=== PATIENT | female | born 1940 | race Caucasian/White ===

== ENCOUNTER → 2016-08-21 | Outpatient (CLI) | payer BC ==
[~2016-08-21] MED LIST: IBUP-103 PO; MULT-506 PO; RXC5 PO
--- NOTE | 2016-08-22 12:45 | MAMMOGRAPHY REPORT ---
BILATERAL DIGITAL SCREENING MAMMOGRAM WITH CAD: 08/21/2016 CLINICAL HISTORY: Routine screening. Patient has no complaints. TECHNIQUE: Current study was also evaluated with a Computer Aided Detection (CAD) system. Bilateral CC and MLO views were obtained. COMPARISON: Comparison is made to exams dated: 09/24/2012 mammogram, 09/22/2012 mammogram, 09/22/2011 m ammogram, 07/15/2004 mammogram, and 07/13/2003 mammogram - [facility]. BREAST COMPOSITION: There are scattered areas of fibroglandular density in both breasts. FINDINGS: There is a possible small cluster of calcifications in the left superior breast at approxi mately 12:00, for which spot magnification views are recommended for further evaluation. Additionally, there are mildly prominent axillary lymph nodes bilaterally, which were not clearly see n on the 2012 and 2011 exams. Recommend bilateral axillary ultrasound for further evaluation. The remainder of both breasts are stable compared to prior exams, without suspicious masses, calcific ations, or areas of architectural distortion noted. IMPRESSION: ACR BI-RADS CATEGORY 0: INCOMPLETE EVALUATION: NEED ADDITIONAL IMAGING EVALUATION Left breast calcifications and bilateral axillary lymph nodes, for which additional imaging evaluatio n is recommended. The patient will be called to schedule an appointment. Approximately 10% of breast cancers are not detected with mammography. A negative mammographic report should not delay biopsy if a clinically suggestive mass is present. Karina Oscar M.D. /:08/21/2016 16:55:30 Chronometer Tester: Danya TOBAR(Fernando)(Marcelino)(ANALILIA), [facility] letter sent: Addl Imaging 0 BI-RADS Code: ACR BI-RADS Category 0: Incomplete Evaluation: Need Additional Imaging Evaluation
== END | disposition home or self-care (01) ==
LOC: C.MAMM 11:07
PROVIDERS: ATTEND Family Medicine
DX: Z12.31 Encounter for screening mammogram for malignant neoplasm of breast (principal)

== ENCOUNTER → 2016-09-04 | Outpatient (CLI) | payer BC ==
--- NOTE | 2016-09-04 16:01 | MAMMOGRAPHY REPORT ---
UNILATERAL LEFT DIGITAL DIAGNOSTIC MAMMOGRAM AND TARGETED BILATERAL ULTRASOUND: 09/04/2016 CLINICAL HISTORY: Callback from screening mammogram for left breast calcifications and prominent bila teral axillary lymph nodes. TECHNIQUE: Spot magnification left CC and ML views were obtained. COMPARISON: Comparison is made to exams dated: 08/21/2016 mammogram, 09/22/2012 mammogram, 09/22/2011 m ammogram, 07/15/2004 mammogram, 07/13/2003 mammogram, and 09/24/2012 mammogram - [facility] ter. BREAST COMPOSITION: There are scattered areas of fibroglandular density in the left breast. FINDINGS: Spot magnification views of the left breast demonstrate a small 1 mm cluster of 2-3 punctat e benign-appearing calcifications in the left 12:00 breast anteriorly. The calcifications were not c learly evident on prior exams. The calcifications are probably benign and short interval follow-up i s recommended. Targeted ultrasound was performed of bilateral axillary regions to evaluate the axillary lymph nodes seen mammographically. There are multiple morphologically normal lymph nodes in bilateral axillary r egions, which are normal oval in shape and demonstrate normal fatty rickey and thin peripheral cortices . No morphologically abnormal lymph nodes are evident. IMPRESSION: ACR-BI-RADS CATEGORY 3: PROBABLY BENIGN, TARGETED ULTRASOUND ACR-BI-RADS CATEGORY 3: PRO BABLY BENIGN 1. Small cluster of 2-3 punctate benign-appearing calcifications in the left 12:00 breast is probabl y benign. Recommend follow-up diagnostic mammograms of the left breast in 6 months to confirm stabil ity. 2. Morphologically normal bilateral axillary lymph nodes, without evidence of adenopathy. The patient has been verbally notified of the results. Approximately 10% of breast cancers are not detected with mammography. A negative mammographic report should not delay biopsy if a clinically suggestive mass is present. Karina Oscar M.D. /:09/04/2016 14:50:03 Innovation Manager: Michael TOBAR(R)(M), [facility] letter sent: Follow Up Recommended 3 BI-RADS Code: ACR-BI-RADS Category 3: Probably Benign Ultrasound BI-RADS: ACR-BI-RADS Category 3: Pr obably Benign
== END | disposition home or self-care (01) ==
LOC: C.MAMM 12:38
PROVIDERS: ATTEND Family Medicine
DX: R92.1 Mammographic calcification found on diagnostic imaging of breast (principal); R92.2 Inconclusive mammogram

== ENCOUNTER → 2016-10-27 | Day surgery (SDC) | payer BC ==
[2016-09-18 08:28] VITALS: Ht 170.2 cm; Wt 67.3 kg
[~2016-10-27] VITALS: Ht 170.2 cm; Wt 67.3 kg
[~2016-10-27] MED LIST changes: +ACETAMINOPHEN 325 MG TAB PO PRN; +ATROPINE SULFATE 0.1 MG/ML 5ML SYR IV PRN; +BRIMONIDINE TART 0.2% OP SOLN PER DROP CHARGE ONE; +EpHEDrine SULFATE INJ 50 MG/ML AMP IV PRN; +EpINEphrine INJ 1MG/ML AMP 1 MG/ML AMP ONE; +LACTATED RINGER'S 1000ML 500 ML IV SCH; +LIDOCAINE 4% OP SOLN DROP CHARGE ONE; +LIDOCAINE 4% OP SOLN DROP CHARGE OPL SCH; +LIDOCAINE HCL 1% MPF 2 ML VIAL ONE; +MIDAZOLAM HCL 1 MG/ML 2ML VIAL ONE; +MOXIFLOXACIN OPH SOLN PER DROP CHARGE ONE; +POVIDONE-IODINE OP SOLN 30 ML BTL ONE; +PROPARACAINE 0.5% OP SOLN PER DROP CHARGE OPL SCH; +PROPARACAINE HCL 0.5% OP SOLN 15 ML BTL OPL ONE; -RXC5 PO; +TOBRAMYCIN/DEXAMETHASONE OPH OINT PER APPLN CHARGE ONE
[2016-10-27] MEDS: PHENYLEPHRINE HCL 2.5% OP SOLN PER DROP CHARGE OPL SCH ×2 (09:21→09:27)
[2016-10-27] MEDS: TROPICAMIDE 1% OP SOLN PER DROP CHARGE OPL SCH ×2 (09:22→09:28)
[2016-10-27] MEDS: CYCLOPENTOLATE HCL 1% OP SOLN PER DROP CHARGE OPL SCH ×2 (09:23→09:29)
[2016-10-27] MEDS: KETOROLAC 0.5% OP SOLN PER DROP CHARGE OPL SCH ×2 (09:24→09:30)
[2016-10-27] MEDS: MOXIFLOXACIN OPH SOLN PER DROP CHARGE OPL SCH ×2 (09:25→09:31)
--- NOTE | 2016-10-27 09:48 | History & Physical Bridge - SC ---
H&P Re-Evaluation Bridge Note: I have examined the patient, reviewed the History & Physical and in the interval since the performance of the History & Physical I have noted the following changes of clinical significance: No changes noted
--- NOTE | 2016-10-27 11:10 | Discharge Instructions-SurgCtr ---
Discharge Instructions Date of Service Oct 27, 2016. Visit Reason for Visit: Cataract Left Eye Discharge Discharge Diagnosis / Problem: cataract left eye Discharge Goals Goal(s): Improve function Activity Recommendations Activity Limitations: per Instructions/Follow-up section Lifting Limitations: no more than 5 pounds Anesthesia . Post Anesthesia Instructions: If you have had General Anesthesia or IV Sedation: * Do not drive today. * Resume driving when surgeon permits. * Do not make important decisions or sign legal documents today. * Call surgeon for: 1. Temperature elevations greater than 101 degrees F. 2. Uncontrollable pain. 3. Excessive bleeding. 4. Persistent nausea and vomiting. 5. Medication intolerance (nausea, vomiting or rash). * For nausea and vomiting use only clear liquids such as: tea, soda, bouillon until nausea subsides, then gradually increase diet as tolerated. * If you have any concerns or questions, call your surgeon's office. If physician is unavailable and it is an emergency, call 911 or go to the nearest emergency room. . Instructions / Follow-Up Instructions / Follow-Up ACTIVITY RECOMMENDATIONS: * Light activities * You may walk outside, read, watch television. * Mild irritation and blurred vision are common for the first few days, redness around the white part of the eye is common. MEDICATIONS: Resume previous medications unless instructed otherwise by your surgeon. Eye drops (today and tomorrow): Cipro - one drop in operative eye every 2 hours while awake Prednisolone 1% - one drop in operative eye every 2 hours while awake Ilevro - one drop operative eye 1 times daily SPECIAL CARE INSTRUCTIONS: * If any problems or concerns, please call Dr. Boston's office at . * Keep plastic shield taped over eye to sleep at night. * Keep plastic shield taped over eye except to administer eye drops. * Keep plastic shield on until office visit the following day. FOLLOW UP VISIT: Follow-up with Dr. Boston in the [place] office as scheduled. If not already scheduled, please call the office at . Diet Recommendations Home Diet: resume previous diet Procedures Procedures Performed: Left Cataract Phacoemulsification With Intraocular Lens Implant; Symfony Lens Pending Studies Studies pending at discharge: no Medical Emergencies . Who to Call and When: Medical Emergencies: If at any time you feel your situation is an emergency, please call 911 immediately. . Non-Emergent Contact Non-Emergency issues call your: Malariologist . . "Provider Documentation" section prepared by Lexx Boston. .
[2016-10-27 11:12] VITALS: TEMP 36.6
--- NOTE | 2016-10-27 11:14 | [facility] Operative Report ---
Operative Report Operative Date Oct 27, 2016. Pre-Operative Diagnosis Left Eye Cataract and astigmatism Post-Operative Diagnosis Same Procedure(s) Performed Left Cataract Phacoemulsification With Intraocular Lens Implant; Toric Symfony Lens Surgeon Dr Boston Benzol Operator Surgeon(s) None Estimated Blood Loss 0ml Findings cataract left eye Fluids (cc crystalloids) see anesthesia record Specimens None Drains none Anesthesia local with sedation Complication(s) None Disposition Recovery Room / PACU Implants HUNTER [id number] 17.0 Indications decreased vision left eye Description of Procedure After informed consent was obtained in the holding area the patient was wheeled back to the Femtosecond laser room. The left eye was docked with the laser and the capsulorrhexis, prechop of the lens, and primary incision were made. The patient was then taken to the operating room where cardiac monitoring leads and oxygen by nasal cannula was administered by Anesthesia. Gentle IV sedation was given, and the patient's left eye was prepped and draped in usual sterile fashion. A wire lid speculum was placed into the left eye and the operating microscope was swung into position. Using 0.12 forceps and a Supersharp blade a paracentesis port was made 2 o'clock hours away from the 3 o'clock position of the patient's left eye. 1% non-preserved Lidocaine was then injected into the anterior chamber for anesthesia. Endocoat was injected into the anterior chamber. A Jose Francisco spatula was then used to enter the corneal incision at the 3 o'clock position of the left eye. Amvisc was injected into the anterior chamber and a cystotome and Utrata forceps were used to remove the curvilinear capsulorrhexis. BSS on a hydrodissection cannula was used to hydrodissect the lens nucleus away from the capsular bag. The phacoemulsification handpiece was then used in a stop and chop fashion to remove the lens nucleus. The irrigation and aspiration handpiece was then used to remove the residual cortical material. Amvisc was injected into the capsular bag and anterior chamber and a HUNTER [id number] 17.0 Diopter intraocular lens was injected into the capsular bag. Irrigation and aspiration handpiece was used to remove the residual viscoelastic material. The wounds were hydrated and noted to be watertight. The wire lid speculum was removed from the eye. Vigamox, Brimonidine, and TobraDex ointment were placed on the eye and it was shielded. It should be noted that EndoCoat was used extensively during the case to protect the cornea endothelium. DISPOSITION: The patient tolerated the procedure well and was wheeled to the post anesthesia care unit in stable condition. I attest to the content of the Intraoperative Record and any orders documented therein. Any exceptions are noted below. I attest to the content of the Intraoperative Record and any orders documented therein. Any exceptions are noted below.
--- NOTE | 2016-10-27 11:20 | Anesthesiology Progress Note ---
Anesthesia Post Op Note Date & Time Oct 27, 2016 at 11:19 Vital Signs Pain Intensity: 0 Vital Signs Past 12 Hours Date Time Temp Pulse Resp B/P (MAP) Pulse Ox O2 Delivery O2 Flow Rate FiO2 10/27/16 11:12 36.6 73 16 142/86 (104) 73 Room Air 10/27/16 10:46 85 16 156/88 100 Room Air 10/27/16 10:40 74 16 144/89 98 Room Air 10/27/16 09:14 36.5 88 18 179/105 (129) 97 Room Air Notes Mental Status: alert / awake / arousable, participated in evaluation Pt Amnestic to Procedure: No Nausea / Vomiting: adequately controlled Pain: adequately controlled Airway Patency, RR, SpO2: stable & adequate BP & HR: stable & adequate Hydration State: stable & adequate Anesthetic Complications: no major complications apparent Anesthetic Complications: level of amnesia appropriate for MAC
[2016-10-27 11:26] VITALS: BP 127/81; PULSE 73; O2SAT 97
== END | disposition home or self-care (01) ==
LOC: X.SURG 09:01
PROVIDERS: ATTEND Ophthalmology
DX: H25.12 Age-related nuclear cataract, left eye (principal); H52.202 Unspecified astigmatism, left eye; Z96.652 Presence of left artificial knee joint; M19.90 Unspecified osteoarthritis, unspecified site; F41.9 Anxiety disorder, unspecified

== ENCOUNTER → 2016-11-10 | Day surgery (SDC) | payer BC ==
[2016-11-06 13:32] VITALS: Ht 170.2 cm; Wt 67.3 kg
[~2016-11-10] VITALS: Ht 170.2 cm; Wt 67.3 kg
[~2016-11-10] MED LIST changes: +500ML BSS 0.3ML EPI 1:1000PF IRRIG ONE; +AMVISC PLUS 0.8ML SYRINGE INT OCU ONE; +BSS FLUSH ONE; +ENDOCOAT 0.85ML SYRINGE INT OCU ONE; -LIDOCAINE 4% OP SOLN DROP CHARGE OPL SCH; +LIDOCAINE 4% OP SOLN DROP CHARGE OPR SCH; -PROPARACAINE 0.5% OP SOLN PER DROP CHARGE OPL SCH; +PROPARACAINE 0.5% OP SOLN PER DROP CHARGE OPR SCH; -PROPARACAINE HCL 0.5% OP SOLN 15 ML BTL OPL ONE; +PROPARACAINE HCL 0.5% OP SOLN 15 ML BTL OPR ONE
[2016-11-10] MEDS: PHENYLEPHRINE HCL 2.5% OP SOLN PER DROP CHARGE OPR SCH ×2 (08:04→08:13)
[2016-11-10] MEDS: TROPICAMIDE 1% OP SOLN PER DROP CHARGE OPR SCH ×2 (08:05→08:15)
[2016-11-10] MEDS: CYCLOPENTOLATE HCL 1% OP SOLN PER DROP CHARGE OPR SCH ×2 (08:06→08:16)
[2016-11-10] MEDS: KETOROLAC 0.5% OP SOLN PER DROP CHARGE OPR SCH ×2 (08:07→08:17)
[2016-11-10] MEDS: MOXIFLOXACIN OPH SOLN PER DROP CHARGE OPR SCH ×2 (08:09→08:18)
--- NOTE | 2016-11-10 09:25 | Discharge Instructions-SurgCtr ---
Discharge Instructions Date of Service Nov 10, 2016. Visit Reason for Visit: Right Cataract Discharge Discharge Diagnosis / Problem: cataract right eye Discharge Goals Goal(s): Improve function Activity Recommendations Activity Limitations: per Instructions/Follow-up section Lifting Limitations: no more than 5 pounds Anesthesia . Post Anesthesia Instructions: If you have had General Anesthesia or IV Sedation: * Do not drive today. * Resume driving when surgeon permits. * Do not make important decisions or sign legal documents today. * Call surgeon for: 1. Temperature elevations greater than 101 degrees F. 2. Uncontrollable pain. 3. Excessive bleeding. 4. Persistent nausea and vomiting. 5. Medication intolerance (nausea, vomiting or rash). * For nausea and vomiting use only clear liquids such as: tea, soda, bouillon until nausea subsides, then gradually increase diet as tolerated. * If you have any concerns or questions, call your surgeon's office. If physician is unavailable and it is an emergency, call 911 or go to the nearest emergency room. . Instructions / Follow-Up Instructions / Follow-Up ACTIVITY RECOMMENDATIONS: * Light activities * You may walk outside, read, watch television. * Mild irritation and blurred vision are common for the first few days, redness around the white part of the eye is common. MEDICATIONS: Resume previous medications unless instructed otherwise by your surgeon. Eye drops (today and tomorrow): Cipro - one drop in operative eye every 2 hours while awake Prednisolone 1% - one drop in operative eye every 2 hours while awake Ilevro - one drop operative eye 1 times daily SPECIAL CARE INSTRUCTIONS: * If any problems or concerns, please call Dr. Boston's office at . * Keep plastic shield taped over eye to sleep at night. * Keep plastic shield taped over eye except to administer eye drops. * Keep plastic shield on until office visit the following day. FOLLOW UP VISIT: Follow-up with Dr. Boston in the [place] office as scheduled. If not already scheduled, please call the office at . Diet Recommendations Home Diet: resume previous diet Procedures Procedures Performed: Right Cataract Phacoemulsification With Intraocular Lens Implant, Symfony Lens, Femto Pending Studies Studies pending at discharge: no Medical Emergencies . Who to Call and When: Medical Emergencies: If at any time you feel your situation is an emergency, please call 911 immediately. . Non-Emergent Contact Non-Emergency issues call your: Sprinkler Installer . . "Provider Documentation" section prepared by Lexx Boston. .
[2016-11-10 09:26] VITALS: TEMP 36.6
--- NOTE | 2016-11-10 09:29 | [facility] Operative Report ---
Operative Report Operative Date Nov 10, 2016. Pre-Operative Diagnosis Right Eye Cataract Post-Operative Diagnosis Same Procedure(s) Performed Right Cataract Phacoemulsification With Intraocular Lens Implant, Symfony Lens, Femto Surgeon Dr Boston Special Education Administrator Surgeon(s) None Estimated Blood Loss 0ml Findings cataract right eye Fluids (cc crystalloids) see anesthesia record Specimens None Drains none Anesthesia local with sedation Complication(s) None Disposition Recovery Room / PACU Implants hunter [id number] 15.0 Indications decreased vision right eye Description of Procedure After informed consent was obtained in the holding area the patient was wheeled back to the femtosecond laser room. The right eye was docked with the laser and the laser was used to make the capsulorrhexis, prechop of the lens, and primary incision. The patient was then taken to the operating room where cardiac monitoring leads and oxygen by nasal cannula was administered by Anesthesia. Gentle IV sedation was given, and the patient's right eye was prepped and draped in usual sterile fashion. A wire lid speculum was placed into the right eye and the operating microscope was swung into position. Using 0.12 forceps and a Supersharp blade a paracentesis port was made 2 o'clock hours away from the 9 o'clock position of the patient's right eye. 1% non-preserved Lidocaine was then injected into the anterior chamber for anesthesia. Endocoat was then injected into the anterior chamber. A Jose Francisco spatula was then used to enter the shelved clear corneal incision at the 9 o'clock position of the right eye. Amvisc was injected into the anterior chamber and a cystotome and Utrata forceps were used to perform a curvilinear capsulorrhexis. BSS on a hydrodissection cannula was used to hydrodissect the lens nucleus away from the capsular bag. The phacoemulsification handpiece was then used in a stop and chop fashion to remove the lens nucleus. The irrigation and aspiration handpiece was then used to remove the residual cortical material. Amvisc was injected into the capsular bag and anterior chamber and a HUNTER [id number] 15.0 Diopter intraocular lens was injected into the capsular bag. Irrigation and aspiration handpiece was used to remove the residual viscoelastic material. The wounds were hydrated and noted to be watertight. The wire lid speculum was removed from the eye. Vigamox, Brimonidine, and TobraDex ointment were placed on the eye and it was shielded. It should be noted that EndoCoat was used extensively during the case to protect the cornea endothelium. DISPOSITION: The patient tolerated the procedure well and was wheeled to the post anesthesia care unit in stable condition. I attest to the content of the Intraoperative Record and any orders documented therein. Any exceptions are noted below. I attest to the content of the Intraoperative Record and any orders documented therein. Any exceptions are noted below.
--- NOTE | 2016-11-10 09:31 | Anesthesia Progress Nt - [facility] ---
Anesthesia Post Op Note Date & Time Nov 10, 2016 at 09:31 Vital Signs Pain Intensity: 0 Vital Signs Past 12 Hours Date Time Temp Pulse Resp B/P (MAP) Pulse Ox O2 Delivery O2 Flow Rate FiO2 11/10/16 09:26 36.6 76 16 147/84 (105) 95 Room Air 11/10/16 08:57 80 16 152/90 98 Room Air 11/10/16 08:52 77 16 134/85 98 Room Air 11/10/16 07:43 36.6 81 144/95 (111) 99 Room Air Notes Mental Status: alert / awake / arousable, participated in evaluation Pt Amnestic to Procedure: Yes Nausea / Vomiting: adequately controlled Pain: adequately controlled Airway Patency, RR, SpO2: stable & adequate BP & HR: stable & adequate Hydration State: stable & adequate Anesthetic Complications: no major complications apparent
[2016-11-10 09:49] VITALS: BP 126/80; PULSE 70; O2SAT 98
== END | disposition home or self-care (01) ==
LOC: X.SURG 07:30
PROVIDERS: ATTEND Ophthalmology
DX: H25.11 Age-related nuclear cataract, right eye (principal)

== ENCOUNTER → 2017-02-24 | Outpatient (CLI) | payer BC ==
[~2017-02-24] MED LIST changes: -500ML BSS 0.3ML EPI 1:1000PF IRRIG ONE; -ACETAMINOPHEN 325 MG TAB PO PRN; -AMVISC PLUS 0.8ML SYRINGE INT OCU ONE; -ATROPINE SULFATE 0.1 MG/ML 5ML SYR IV PRN; -BRIMONIDINE TART 0.2% OP SOLN PER DROP CHARGE ONE; -BSS FLUSH ONE; -ENDOCOAT 0.85ML SYRINGE INT OCU ONE; -EpHEDrine SULFATE INJ 50 MG/ML AMP IV PRN; -EpINEphrine INJ 1MG/ML AMP 1 MG/ML AMP ONE; -LACTATED RINGER'S 1000ML 500 ML IV SCH; -LIDOCAINE 4% OP SOLN DROP CHARGE ONE; -LIDOCAINE 4% OP SOLN DROP CHARGE OPR SCH; -LIDOCAINE HCL 1% MPF 2 ML VIAL ONE; -MIDAZOLAM HCL 1 MG/ML 2ML VIAL ONE; -MOXIFLOXACIN OPH SOLN PER DROP CHARGE ONE; -POVIDONE-IODINE OP SOLN 30 ML BTL ONE; -PROPARACAINE 0.5% OP SOLN PER DROP CHARGE OPR SCH; -PROPARACAINE HCL 0.5% OP SOLN 15 ML BTL OPR ONE; -TOBRAMYCIN/DEXAMETHASONE OPH OINT PER APPLN CHARGE ONE
== END | disposition home or self-care (01) ==
LOC: C.MAMM 14:54
PROVIDERS: ATTEND Family Medicine
DX: Z78.0 Asymptomatic menopausal state (principal); M85.89 Other specified disorders of bone density and structure, multiple sites

== ENCOUNTER → 2017-04-09 | Outpatient (CLI) | payer BC ==
--- NOTE | 2017-04-09 15:19 | MAMMOGRAPHY REPORT ---
UNILATERAL LEFT DIGITAL DIAGNOSTIC MAMMOGRAM TOMOSYNTHESIS WITH CAD: 04/09/2017 CLINICAL HISTORY: Short interval follow-up of left breast calcifications. The patient reports no cur rent complaints. TECHNIQUE: Breast tomosynthesis in addition to standard 2D mammography was performed. Current study was also evaluated with a Computer Aided Detection (CAD) system. Left CC and MLO 2-D and tomosynthes is images and spot magnification left CC and ML views were obtained. COMPARISON: Comparison is made to exams dated: 09/04/2016 ultrasound, 09/04/2016 mammogram, 08/21/2016 mammogram, 09/24/2012 mammogram, 09/22/2012 mammogram, and 09/22/2011 mammogram - [facility]. BREAST COMPOSITION: There are scattered areas of fibroglandular density in the left breast. FINDINGS: The small 1 mm cluster of 3 punctate benign-appearing calcifications in the left 12:[address] is stable compared to the August 2016 exam and is probably benign. The remainder of the left breast is stable compared to prior exams, without suspicious masses, calcifications, or areas of architectu ral distortion noted. IMPRESSION: ACR-BI-RADS CATEGORY 3: PROBABLY BENIGN Small cluster of punctate benign-appearing calcifications in the left 12:00 breast is stable compared to the August 2016 exam and is probably benign. Recommend follow-up bilateral diagnostic mammograms i n 6 months to confirm longer stability of the left breast calcifications and for routine mammography of the right breast. The patient has been verbally notified of the results. Approximately 10% of breast cancers are not detected with mammography. A negative mammographic report should not delay biopsy if a clinically suggestive mass is present. Karina Oscar M.D. ah/:04/09/2017 09:56:45 Records Technician: Evelyn SEGURA)(Marcelino), [facility] letter sent: Follow Up Recommended 3 BI-RADS Code: ACR-BI-RADS Category 3: Probably Benign
== END | disposition home or self-care (01) ==
LOC: C.MAMM 09:28
PROVIDERS: ATTEND Family Medicine
DX: R92.0 Mammographic microcalcification found on diagnostic imaging of breast (principal)

== ENCOUNTER 2021-06-06 18:56 | Inpatient (IN) ==
--- NOTE | 2021-06-06 20:16 | XRay Report ---
XR chest 1V portable CLINICAL HISTORY: weakness. Evaluate cardiopulmonary status COMPARISON STUDY: 07/06/2018 TECHNIQUE: 1 view of the chest FINDINGS: Single frontal view of the chest demonstrates the cardiomediastinal silhouette to be within normal li mits. There is a decreased inspiratory effort with elevation of the hemidiaphragms and crowding of th e bronchovascular markings at the lung bases and centrally. The lungs are clear of alveolar opacities . There is no evidence for pleural effusion. There is no evidence for vascular congestion. There is n o acute osseous pathology. IMPRESSION: 1. There is a decreased inspiratory effort with otherwise no acute chest disease. ACT 112: Negative or not required by law. Electronically signed by: Alex Kumar M.D. 06/06/2021 8:14 PM
[2021-06-06] MEDS ORDERED: SODIUM CHLORIDE 0.9% 1000ML 1,000 ML IV ONE (20:19)
[2021-06-06 20:21] LABS: Basophils # (auto) 0.04 K/uL (0-0.2); Basophils % (auto) 0.2 %; Eosinophils # (auto) 0.11 K/uL (0-0.5); Eosinophils % (auto) 0.7 %; Hematocrit (blood only) 50.1 % (37-47); Hemoglobin 16.4 g/dL (12.0-16.0); Immature Granulocytes # (auto) 0.05 K/uL (0.00-0.02); Immature Granulocytes % (auto) 0.3 %; Lymphocytes # (auto) 1.23 K/uL (1.2-3.4); Lymphocytes % (auto) 7.6 %; Mean Corpuscular Hemoglobin 30.8 pg (25-34); Mean Corpuscular Hgb Conc 32.7 g/dL (32-36); Mean Platelet Volume 10.8 fL (7.4-10.4); Monocytes # (auto) 0.78 K/uL (0.11-0.59); Monocytes % (auto) 4.8 %; Neutrophils # (auto) 13.94 K/uL (1.4-6.5); Neutrophils % (auto) 86.4 %; Platelet Count 514 K/uL (130-400); RDW Coefficient of Variation 14.8 % (11.5-14.5); RDW Standard Deviation 50.9 fL (36.4-46.3); Red Blood Count 5.33 M/uL (4.2-5.4); White Blood Count 16.15 K/uL (4.8-10.8)
[2021-06-06] MEDS ORDERED: OPTIRAY 320 125ml IV ONE (20:23)
[2021-06-06] MEDS ORDERED: STAT IV STA (20:26)
[2021-06-06] MEDS ORDERED: SODIUM CHLORIDE 0.9% 10ML FLUSH IV STA (20:26)
[2021-06-06] MEDS ORDERED: No Aspirin within 24hrs of THROMBOLYTIC-Stroke PO SCH (20:30)
--- NOTE | 2021-06-06 20:38 | CT Scan Report ---
CT head/brain wo con CLINICAL HISTORY: Stroke Like Symptoms . Right-sided weakness COMPARISON STUDY: No previous studies for comparison. CT DOSE: TECHNIQUE: Standard CT of the Brain was performed without IV contrast. A dose lowering technique was utilized adhering to the principles of ALARA. FINDINGS: Extraaxial space: There is no evidence for subdural hematoma. There are no extra-axial fluid collecti ons. Ventricles and cisterns: The ventricles are moderately dilated bilaterally. There is no evidence for midline shift or mass effect. Parenchyma: There is no subarachnoid or intraparenchymal hemorrhage. There is no evidence for an acut e infarct or cerebral edema. There is mild cerebral cortical atrophy and decreased attenuation in the periventricular white matter representing remote small vessel disease. There are no gross mass lesio ns. Osseous structures: There is no evidence for an acute fracture. The visualized paranasal sinuses are clear. The mastoid air cells are clear bilaterally. Soft tissues: There is no evidence for focal soft tissue swelling. IMPRESSION: 1. No acute intracerebral pathology. 2. Atrophy and remote small vessel disease. ACT 112: Negative or not required by law. Electronically signed by: Alex Kumar M.D. 06/06/2021 8:36 PM
[2021-06-06] MEDS ORDERED: TENECTEPLASE 16 MG in SYRINGE 0 ML IV ONE (20:39)
[2021-06-06 20:43] LABS: Troponin I High Sensitivity 4.2 pg/ml (0-14)
--- NOTE | 2021-06-06 20:43 | Emergency Department Note ---
Impression & Plan Stroke-like symptoms, Leukocytosis, Dementia, Syncope ED Provider Note NAME: KATERINA CAPELLAN AGE: 80 SEX: F ARRIVES VIA: Walk-In INFORMANT: . ED PROVIDER(S): Napoleon Huddleston MD CHIEF COMPLAINT: syncope, confusion PLAN: Disposition: Admit MEDICAL DECISION MAKING: The patient is a pleasant 80-year-old woman with past medical history of demen tia who presents emergency department coming by her for evaluation of a syncopal episode which happened at 6:15 PM this evening after they spent the afternoon shopping. The patient's reports that they were driving in the car and she suddenly slumped over against the door held up only by the seatbelt and reports it took approximately 30 seconds to wake her up. He also has that she appeared somewhat collado but was awake and answering questions though somewhat confused from her baseline. He reports that given she did not improve he brought her to the emergency department and noted that it was difficult to get her out of the car into the wheelchair because she could not follow commands very well particular was unable to follow commands related to her right or left. Did arrive emergency department during a time of high volume and acuity was prolonged ED wait times as long as 3 hours. It does not appear that the patient exhibited any focal symptoms upon her initial triage however critical pathways were performed and when she was getting her x-rays done the technicians noted that she did not seem to move her right arm normally. Subsequently a stroke alert was activated. I did meet with the patient in the room at the time and she was alert and oriented to self and place. While she was able to raise her right arm and grasp with normal strength she did have a component of neglect of the right upper extremity and was unable to follow commands to lift her palm up where as she was able to do this without difficulty on her left side. She has normal strength in bilateral lower extremities. She has no overt aphasia. I did speak at length with the regarding her recent history and he does admit that her dementia has been progressing over years. He reports she stopped driving 4 years ago. He reports that at times he is noticed that she was standing and referring refrigerator and had trouble closing the door. However he reports she has never exhibited symptoms she is now regarding her right arm. He denies any recent or history otherwise of stroke. He denies any history of bleeding or brain or otherwise. He reports she is not on any blood thinners. Case was reviewed with [facility] telestroke neurology, Dr. Lerma. Appreciate consultation/recommendations. He did evaluate the patient via the telestroke terminal. Given the patient's exam that does appear focal TNK was recommended. provided consent and TNK was administered. Magnesium also administered for neuro protection per recommendations. EKG without overt acute ischemia. CXR negative for acute cardiopulmonary process. WBC 16K nonspecific. H/H 16.4/50.1 increased from prior and consistent with patient's clinically dry appearance. Platelets 514K nonspecific. Chemistry without metabolic acidosis. BUN 38 consistent with the patient's clinically dry appearance. Electrolytes and LFTs unremarkable. High-sensitivity troponin 4.2, within normal limits. TSH is elevated 8.2 however free T4 and free T3 within normal limits. UA without convincing evidence of infection. Covid-19 RNA, NAAT negative. CT of the head negative for ICH or ischemia. Note is made of small vessel disease and atrophy. CTA of the head and neck negative for severe narrowing or occlusion of large vessels. Case was discussed with Dr. Ya, [facility] hospitalist, who will evaluate the patient for admission. Triage Nursing notes reviewed and agree them. Prior medical records reviewed Vital Signs: reviewed and remarkable for no significant abnormalities Differential diagnosis: Vasovagal event, dehydration, infection, hypoglycemia, electrolyte abnormalities, cardiac sources, intracerebral event, pulmonary embolism, seizure, toxicologic, neurologic, as well as other pathologies. ER treatment provided: See below. Diagnostics interpreted by me: ECG: Normal sinus rhythm, 86 bpm, no ectopy, nonspecific T wave abnormality, no overt ST elevation or depression, QTC 454, QRS 84 Cardiac Monitoring: An order for continuous cardiac monitoring was placed and demonstrated normal sinus rhythm, 86 bpm, no ectopy Laboratory studies: See below Imaging studies: See below Consultation(s): Dr. Lerma, [facility] telestroke neurology. HPI: The patient is a pleasant 80-year-old woman with past medical history of de mentia who presents emergency department coming by her for evaluation of a syncopal episode which happened at 6:15 PM this evening after they spent the afternoon shopping. The patient's reports that they were driving in the car and she suddenly slumped over against the door held up only by the seatbelt and reports it took approximately 30 seconds to wake her up. He also has that she appeared somewhat collado but was awake and answering questions though somewhat confused from her baseline. He reports that given she did not improve he brought her to the emergency department and noted that it was difficult to get her out of the car into the wheelchair because she could not follow commands very well particular was unable to follow commands related to her right or left. Did arrive emergency department during a time of high volume and acuity was prolonged ED wait times as long as 3 hours. It does not appear that the patient exhibited any focal symptoms upon her initial triage however critical pathways were performed and when she was getting her x-rays done the technicians noted that she did not seem to move her right arm normally. Subsequently a stroke alert was activated. I did meet with the patient in the room at the time and she was alert and oriented to self and place. While she was able to raise her right arm and grasp with normal strength she did have a component of neglect of the right upper extremity and was unable to follow commands to lift her palm up where as she was able to do this without difficulty on her left side. She has normal strength in bilateral lower extremities. She has no overt aphasia. I did speak at length with the regarding her recent history and he does admit that her dementia has been progressing over years. He reports she stopped driving 4 years ago. He reports that at times he is noticed that she was standing and referring refrigerator and had trouble closing the door. However he reports she has never exhibited symptoms she is now regarding her right arm. ROS: See above HPI for pertinent positives & negatives. A total of 10 systems reviewed and were otherwise negative. VITALS:See Below PHYSICAL EXAMINATION: GENERAL: Awake, alert, well-appearing, in no distress HENT: Normocephalic, atraumatic. Oropharynx with dry mucous membranes and otherwise unremarkable. EYES: Normal conjunctiva. Sclera non-icteric. NECK: Supple. No nuchal rigidity. FROM. No JVD. RESPIRATORY: Clear to auscultation. CARDIAC: Regular rate, normal rhythm. Extremities warm and well perfused. Pulses equal. ABDOMEN: Soft, non-distended. No tenderness to palpation. No rebound or guarding. No masses. RECTAL: Deferred. MUSCULOSKELETAL: Chest examination reveals no tenderness. The back is symmetrical on inspection without obvious abnormality. There is no CVA tenderness to palpation. No joint edema. LOWER EXTREMITIES: Calves are equal size bilaterally and non-tender. No edema. No discoloration. NEURO: She was able to raise her right arm and grasp with normal strength she did have a component of neglect of the right upper extremity and was unable to follow commands to lift her palm up where as she was able to do this without difficulty on her left side. She has normal strength in bilateral lower extremities. She has no overt aphasia. SKIN: No rash or jaundice noted. ED COURSE: Critical Care: I have personally spent greater than 65 minutes of critical care time in the direct management of this patient. This includes bedside care, interpretation of diagnostic studies, and testing, discussion with consultants, patient, and family members, and other required patient management activities. This 65 minutes is in excess of all separately billable procedures. Napoleon Huddleston MD Past Med/Surg History Medical History Dizziness HTN (hypertension) Hyperglycemia Hypokalemia Hyponatremia Osteoarthritis of knee Surgical History History of total left knee replacement History of tubal ligation Family History Other Diabetes Hypertension Social History Smoking Status: Never smoker Do You Dip or Chew Tobacco: No; Hx Alcohol Use: Yes Alcohol type: wine Hx Substance Use: No Preferred Language: Korean Communication Ability: Effective Visual Impairment: Limited Hearing Ability: Use of Hearing Aid Machine Finisher Required: No Beliefs That Will Affect Care: None marital status: Current Living Situation: Spouse current occupational status: retired Other Information That Helps Us Care for You: No Feels Safe at Home: Yes Safety Concerns: Feels Safe At This Time caffeine: Yes during the past year weight has: remained stable Assistive Devices: Hearing Aid - Left and Hearing Aid - Right Allergies Allergies Allergy/AdvReac Type Severity Reaction Status Date / Time No Known Allergies Allergy Mild Verified 06/06/21 22:15 Home Meds Home Medications Medication Instructions Recorded Confirmed multivitamin 1 tab PO DAILY 07/07/18 06/06/21 amlodipine 2.5 mg tablet 2.5 mg PO DAILY 06/06/21 06/06/21 escitalopram oxalate 10 mg tablet 10 mg PO DAILY 06/06/21 06/06/21 protein 1 ea PO DAILY 06/06/21 06/06/21 Results & Data (ED) Vital Signs Vital Signs - 24 hr 06/06/21 19:18 06/06/21 20:30 06/06/21 20:45 Temperature 36.0 C L Temperature Source Temporal Artery Scan Pulse Rate 111 H Pulse Rate [Apical] 96 H 96 H Pulse Rhythm [Apical] Regular Regular Pulse Strength [Apical] Normal Normal Respiratory Rate 18 15 16 Respiratory Effort / Characteristics Non-Labored Non-Labored Spontaneous Respiratory Depth Normal Normal Respiratory Pattern Regular Blood Pressure 129/83 Blood Pressure [Right Arm] 169/100 H 153/84 H Blood Pressure Mean 98 Blood Pressure Mean [Right Arm] 123 107 Blood Pressure Position [Right Arm] Sitting Pulse Oximetry 95 99 99 Oxygen Delivery Method Room Air Room Air Room Air Sepsis Recent Fever Within 48 Hours No Sepsis New/Unexplained Change in Mental Status N/A Sepsis Action Taken by Nursing No Action Required 06/06/21 20:48 06/06/21 21:00 06/06/21 21:15 Temperature 36.4 C L 36.5 C Temperature Source Oral Oral Pulse Rate Pulse Rate [Apical] 97 H 90 Pulse Rhythm [Apical] Regular Regular Pulse Strength [Apical] Normal Normal Respiratory Rate 20 18 Respiratory Effort / Characteristics Non-Labored Spontaneous Non-Labored Spontaneous Respiratory Depth Normal Normal Respiratory Pattern Regular Blood Pressure Blood Pressure [Right Arm] 158/91 H 148/73 H Blood Pressure Mean Blood Pressure Mean [Right Arm] 113 98 Blood Pressure Position [Right Arm] Sitting Pulse Oximetry 94 96 97 Oxygen Delivery Method Room Air Room Air Room Air Sepsis Recent Fever Within 48 Hours Sepsis New/Unexplained Change in Mental Status Sepsis Action Taken by Nursing 06/06/21 21:30 06/06/21 21:45 Temperature 36.5 C 36.4 C L Temperature Source Oral Oral Pulse Rate Pulse Rate [Apical] 89 92 H Pulse Rhythm [Apical] Regular Regular Pulse Strength [Apical] Normal Normal Respiratory Rate 18 23 Respiratory Effort / Characteristics Non-Labored Spontaneous Non-Labored Respiratory Depth Normal Normal Respiratory Pattern Regular Blood Pressure Blood Pressure [Right Arm] 162/90 H 154/81 H Blood Pressure Mean Blood Pressure Mean [Right Arm] 114 105 Blood Pressure Position [Right Arm] Lying Lying Pulse Oximetry 100 94 Oxygen Delivery Method Room Air Room Air Sepsis Recent Fever Within 48 Hours Sepsis New/Unexplained Change in Mental Status Sepsis Action Taken by Nursing Laboratory Data Attestation: I reviewed the patient's lab results. Result diagrams: 06/06/21 20:08 06/06/21 20:08 Lab Results 06/06/21 06/06/21 06/06/21 Range/Units 12:45 20:08 20:08 WBC 16.15 H (4.8-10.8) K/uL RBC 5.33 (4.2-5.4) M/uL Hgb 16.4 H (12.0-16.0) g/dL Hct 50.1 H (37-47) % MCV 94.0 (80-100) fL MCH 30.8 (25-34) pg MCHC 32.7 (32-36) g/dL RDW Std Deviation 50.9 H (36.4-46.3) fL RDW Coeff of [place] 14.8 H (11.5-14.5) % Plt Count 514 H (130-400) K/uL MPV 10.8 H (7.4-10.4) fL Immature Gran % (Auto) 0.3 % Neut % (Auto) 86.4 % Lymph % (Auto) 7.6 % [place] % (Auto) 4.8 % Eos % (Auto) 0.7 % Baso % (Auto) 0.2 % Neut # (Auto) 13.94 H (1.4-6.5) K/uL Lymph # (Auto) 1.23 (1.2-3.4) K/uL [place] # (Auto) 0.78 H (0.11-0.59) K/uL Eos # (Auto) 0.11 (0-0.5) K/uL Baso # (Auto) 0.04 (0-0.2) K/uL Immature Gran # (Auto) 0.05 H (0.00-0.02) K/uL PT INR APTT PTT Ratio Sodium 141 (136-145) mmol/L Potassium 3.6 (3.5-5.1) mmol/L Chloride 101 (98-107) mmol/L Carbon Dioxide 31 (21-32) mmol/L Anion Gap 9 (3-11) BUN 38 H (6-23) mg/dl Creatinine 0.74 (0.6-1.2) mg/dl Est Cr Clr Drug Dosing 59.1 ml/min Est GFR ( Amer) 87.4 ml/min Est GFR (Non-Af Amer) 75.4 ml/min BUN/Creatinine Ratio 51.4 H (10-20) Glucose 128 H (70-99(Fasting)) mg/dl POC Glucose (70-99) mg/dl Calcium 9.8 (8.5-10.1) mg/dl Phosphorus (2.5-4.9) mg/dl Magnesium (1.7-2.4) mg/dl Total Bilirubin 0.4 (0.2-1.0) mg/dl AST 16 (13-39) U/L ALT 11 (7-52) U/L Alkaline Phosphatase 77 (34-104) U/L Troponin I High Sens 4.2 (0-14) pg/ml Total Protein 7.4 (6.0-8.3) gm/dl Albumin 4.7 (3.4-5.0) gm/dl Globulin 2.7 (2.5-4.0) gm/dl Albumin/Globulin Ratio 1.7 (0.9-2) Procalcitonin (0-0.5) ng/ml TSH (0.300-4.500) uIu/ml Free T4 (0.61-1.60) ng/dl Free T3 (2.3-4.2) pg/ml Prolactin ng/ml Urine Color Yellow Urine Appearance Clear (Clear) Urine pH 6.0 (4.5-7.5) Ur Specific [place] 1.037 H (1.000-1.030) Urine Protein Negative (Negative) Urine Glucose (UA) Negative (Negative) Urine Ketones Negative (Negative) Urine Blood Negative (Negative) Urine Nitrite Negative (Negative) Urine Bilirubin Negative (Negative) Urine Urobilinogen Negative (Negative) Ur Leukocyte Esterase Trace H (Negative) Urine WBC (Auto) 1-5 (0-5) /hpf Urine RBC (Auto) 0-4 (0-4) /hpf U Hyaline Cast (Auto) 1-5 (0-5) /lpf U Epithel Cells (Auto) 20-30 H (0-5) /lpf Urine Bacteria (Auto) Negative (Negative) Urine Yeast Not Reportable SARS-CoV-2, RNA, NAAT (NEGATIVE) 06/06/21 06/06/21 06/06/21 Range/Units 20:08 20:08 20:08 WBC (4.8-10.8) K/uL RBC (4.2-5.4) M/uL Hgb (12.0-16.0) g/dL Hct (37-47) % MCV (80-100) fL MCH (25-34) pg MCHC (32-36) g/dL RDW Std Deviation (36.4-46.3) fL RDW Coeff of [place] (11.5-14.5) % Plt Count (130-400) K/uL MPV (7.4-10.4) fL Immature Gran % (Auto) % Neut % (Auto) % Lymph % (Auto) % [place] % (Auto) % Eos % (Auto) % Baso % (Auto) % Neut # (Auto) (1.4-6.5) K/uL Lymph # (Auto) (1.2-3.4) K/uL [place] # (Auto) (0.11-0.59) K/uL Eos # (Auto) (0-0.5) K/uL Baso # (Auto) (0-0.2) K/uL Immature Gran # (Auto) (0.00-0.02) K/uL PT INR APTT PTT Ratio Sodium (136-145) mmol/L Potassium (3.5-5.1) mmol/L Chloride (98-107) mmol/L Carbon Dioxide (21-32) mmol/L Anion Gap (3-11) BUN (6-23) mg/dl Creatinine (0.6-1.2) mg/dl Est Cr Clr Drug Dosing ml/min Est GFR ( Amer) ml/min Est GFR (Non-Af Amer) ml/min BUN/Creatinine Ratio (10-20) Glucose (70-99(Fasting)) mg/dl POC Glucose (70-99) mg/dl Calcium (8.5-10.1) mg/dl Phosphorus 3.7 (2.5-4.9) mg/dl Magnesium 2.4 (1.7-2.4) mg/dl Total Bilirubin (0.2-1.0) mg/dl AST (13-39) U/L ALT (7-52) U/L Alkaline Phosphatase (34-104) U/L Troponin I High Sens Cancelled (0-14) pg/ml Total Protein (6.0-8.3) gm/dl Albumin (3.4-5.0) gm/dl Globulin (2.5-4.0) gm/dl Albumin/Globulin Ratio (0.9-2) Procalcitonin (0-0.5) ng/ml TSH 8.272 H (0.300-4.500) uIu/ml Free T4 0.87 (0.61-1.60) ng/dl Free T3 (2.3-4.2) pg/ml Prolactin ng/ml Urine Color Urine Appearance (Clear) Urine pH (4.5-7.5) Ur Specific [place] (1.000-1.030) Urine Protein (Negative) Urine Glucose (UA) (Negative) Urine Ketones (Negative) Urine Blood (Negative) Urine Nitrite (Negative) Urine Bilirubin (Negative) Urine Urobilinogen (Negative) Ur Leukocyte Esterase (Negative) Urine WBC (Auto) (0-5) /hpf Urine RBC (Auto) (0-4) /hpf U Hyaline Cast (Auto) (0-5) /lpf U Epithel Cells (Auto) (0-5) /lpf Urine Bacteria (Auto) (Negative) Urine Yeast SARS-CoV-2, RNA, NAAT (NEGATIVE) 06/06/21 06/06/21 06/06/21 Range/Units 20:08 20:08 20:08 WBC (4.8-10.8) K/uL RBC (4.2-5.4) M/uL Hgb (12.0-16.0) g/dL Hct (37-47) % MCV (80-100) fL MCH (25-34) pg MCHC (32-36) g/dL RDW Std Deviation (36.4-46.3) fL RDW Coeff of [place] (11.5-14.5) % Plt Count (130-400) K/uL MPV (7.4-10.4) fL Immature Gran % (Auto) % Neut % (Auto) % Lymph % (Auto) % [place] % (Auto) % Eos % (Auto) % Baso % (Auto) % Neut # (Auto) (1.4-6.5) K/uL Lymph # (Auto) (1.2-3.4) K/uL [place] # (Auto) (0.11-0.59) K/uL Eos # (Auto) (0-0.5) K/uL Baso # (Auto) (0-0.2) K/uL Immature Gran # (Auto) (0.00-0.02) K/uL PT INR APTT PTT Ratio Sodium (136-145) mmol/L Potassium (3.5-5.1) mmol/L Chloride (98-107) mmol/L Carbon Dioxide (21-32) mmol/L Anion Gap (3-11) BUN (6-23) mg/dl Creatinine (0.6-1.2) mg/dl Est Cr Clr Drug Dosing ml/min Est GFR ( Amer) ml/min Est GFR (Non-Af Amer) ml/min BUN/Creatinine Ratio (10-20) Glucose (70-99(Fasting)) mg/dl POC Glucose (70-99) mg/dl Calcium (8.5-10.1) mg/dl Phosphorus (2.5-4.9) mg/dl Magnesium (1.7-2.4) mg/dl Total Bilirubin (0.2-1.0) mg/dl AST (13-39) U/L ALT (7-52) U/L Alkaline Phosphatase (34-104) U/L Troponin I High Sens (0-14) pg/ml Total Protein (6.0-8.3) gm/dl Albumin (3.4-5.0) gm/dl Globulin (2.5-4.0) gm/dl Albumin/Globulin Ratio (0.9-2) Procalcitonin < 0.05 (0-0.5) ng/ml TSH (0.300-4.500) uIu/ml Free T4 (0.61-1.60) ng/dl Free T3 3.85 (2.3-4.2) pg/ml Prolactin 44.02 ng/ml Urine Color Urine Appearance (Clear) Urine pH (4.5-7.5) Ur Specific [place] (1.000-1.030) Urine Protein (Negative) Urine Glucose (UA) (Negative) Urine Ketones (Negative) Urine Blood (Negative) Urine Nitrite (Negative) Urine Bilirubin (Negative) Urine Urobilinogen (Negative) Ur Leukocyte Esterase (Negative) Urine WBC (Auto) (0-5) /hpf Urine RBC (Auto) (0-4) /hpf U Hyaline Cast (Auto) (0-5) /lpf U Epithel Cells (Auto) (0-5) /lpf Urine Bacteria (Auto) (Negative) Urine Yeast SARS-CoV-2, RNA, NAAT (NEGATIVE) 06/06/21 06/06/21 06/06/21 Range/Units 20:10 20:24 20:31 WBC (4.8-10.8) K/uL RBC (4.2-5.4) M/uL Hgb (12.0-16.0) g/dL Hct (37-47) % MCV (80-100) fL MCH (25-34) pg MCHC (32-36) g/dL RDW Std Deviation (36.4-46.3) fL RDW Coeff of [place] (11.5-14.5) % Plt Count (130-400) K/uL MPV (7.4-10.4) fL Immature Gran % (Auto) % Neut % (Auto) % Lymph % (Auto) % [place] % (Auto) % Eos % (Auto) % Baso % (Auto) % Neut # (Auto) (1.4-6.5) K/uL Lymph # (Auto) (1.2-3.4) K/uL [place] # (Auto) (0.11-0.59) K/uL Eos # (Auto) (0-0.5) K/uL Baso # (Auto) (0-0.2) K/uL Immature Gran # (Auto) (0.00-0.02) K/uL PT Cancelled INR Cancelled APTT Cancelled PTT Ratio Cancelled Sodium (136-145) mmol/L Potassium (3.5-5.1) mmol/L Chloride (98-107) mmol/L Carbon Dioxide (21-32) mmol/L Anion Gap (3-11) BUN (6-23) mg/dl Creatinine (0.6-1.2) mg/dl Est Cr Clr Drug Dosing ml/min Est GFR ( Amer) ml/min Est GFR (Non-Af Amer) ml/min BUN/Creatinine Ratio (10-20) Glucose (70-99(Fasting)) mg/dl POC Glucose 117 H (70-99) mg/dl Calcium (8.5-10.1) mg/dl Phosphorus (2.5-4.9) mg/dl Magnesium (1.7-2.4) mg/dl Total Bilirubin (0.2-1.0) mg/dl AST (13-39) U/L ALT (7-52) U/L Alkaline Phosphatase (34-104) U/L Troponin I High Sens (0-14) pg/ml Total Protein (6.0-8.3) gm/dl Albumin (3.4-5.0) gm/dl Globulin (2.5-4.0) gm/dl Albumin/Globulin Ratio (0.9-2) Procalcitonin (0-0.5) ng/ml TSH (0.300-4.500) uIu/ml Free T4 (0.61-1.60) ng/dl Free T3 (2.3-4.2) pg/ml Prolactin ng/ml Urine Color Urine Appearance (Clear) Urine pH (4.5-7.5) Ur Specific [place] (1.000-1.030) Urine Protein (Negative) Urine Glucose (UA) (Negative) Urine Ketones (Negative) Urine Blood (Negative) Urine Nitrite (Negative) Urine Bilirubin (Negative) Urine Urobilinogen (Negative) Ur Leukocyte Esterase (Negative) Urine WBC (Auto) (0-5) /hpf Urine RBC (Auto) (0-4) /hpf U Hyaline Cast (Auto) (0-5) /lpf U Epithel Cells (Auto) (0-5) /lpf Urine Bacteria (Auto) (Negative) Urine Yeast SARS-CoV-2, RNA, NAAT NEGATIVE (NEGATIVE) Administered Medications Parenteral Electrolytes (Plasma-Lyte A) 1,000 mls @ 80 mls/hr IV .[id number] MARSHA Stop: 07/07/21 01:29 Last Admin: 06/07/21 01:54 Dose: 80 mls/hr Documented by: [id number] Discontinued Medications Sodium Chloride (Nss 1000ml) 1,000 mls @ 999 mls/hr IV .[id number] ONE Stop: 06/06/21 21:19 Last Infusion: 06/06/21 21:53 Dose: 0 mls/hr Documented by: [id number] Admin: 06/06/21 20:47 Dose: 999 mls/hr Documented by: [id number] Tenecteplase 16 mg/ Syringe 3.2 mls @ 38.4 mls/min IV NOW ONE; Protocol Stop: 06/06/21 20:40 Last Admin: 06/06/21 20:45 Dose: 38.4 mls/min Documented by: [id number] Cosigned by: [id number] Magnesium Sulfate/Dextrose (Magnesium Sulfate / D5w) 1 gm in 100 mls @ 200 mls/hr IV Q1H STA Stop: 06/06/21 21:17 Last Infusion: 06/06/21 21:39 Dose: 0 mls/hr Documented by: [id number] Admin: 06/06/21 21:11 Dose: 200 mls/hr Documented by: [id number] Magnesium Sulfate/Dextrose (Magnesium Sulfate / D5w) 1 gm in 100 mls @ 200 mls/hr IV 2145 ONE Stop: 06/06/21 22:14 Last Infusion: 06/06/21 22:22 Dose: 0 mls/hr Documented by: [id number] Admin: 06/06/21 21:53 Dose: 200 mls/hr Documented by: [id number] Ioversol (Optiray 320 125ml) 120 ml IV ONCE ONE Stop: 06/06/21 20:24 Last Admin: 06/06/21 20:23 Dose: 120 ml Documented by: [id number] Miscellaneous (Stat Iv) 1 ea N/A NOW STA Stop: 06/06/21 20:27 Last Admin: 06/06/21 21:11 Dose: Not Given Documented by: [id number] Sodium Chloride (Sodium Chloride 0.9% 10ml Flush) 20 ml IV NOW STA Stop: 06/06/21 20:27 Last Admin: 06/06/21 20:47 Dose: 20 ml Documented by: [id number] Imaging Data Radiologist's Impression: Chest X-Ray 06/06/21 19:24 XR chest 1V portable CLINICAL HISTORY: weakness. Evaluate cardiopulmonary status COMPARISON STUDY: 07/06/2018 TECHNIQUE: 1 view of the chest FINDINGS: Single frontal view of the chest demonstrates the cardiomediastinal silhouette to be within normal limits. There is a decreased inspiratory effort with elevation of the hemidiaphragms and crowding of the bronchovascular markings at the lung bases and centrally. The lungs are clear of alveolar opacities. There is no evidence for pleural effusion. There is no evidence for vascular congestion. There is no acute osseous pathology. IMPRESSION: 1. There is a decreased inspiratory effort with otherwise no acute chest disease. ACT 112: Negative or not required by law. Electronically signed by: Alex Kumar M.D. 06/06/2021 8:[address] 06/06/21 20:12 CT head/brain wo con CLINICAL HISTORY: Stroke Like Symptoms . Right-sided weakness COMPARISON STUDY: No previous studies for comparison. CT DOSE: TECHNIQUE: Standard CT of the Brain was performed without IV contrast. A dose lowering technique was utilized adhering to the principles of ALARA. FINDINGS: Extraaxial space: There is no evidence for subdural hematoma. There are no extra-axial fluid collections. Ventricles and cisterns: The ventricles are moderately dilated bilaterally. There is no evidence for midline shift or mass effect. Parenchyma: There is no subarachnoid or intraparenchymal hemorrhage. There is no evidence for an acute infarct or cerebral edema. There is mild cerebral cortical atrophy and decreased attenuation in the periventricular white matter representing remote small vessel disease. There are no gross mass lesions. Osseous structures: There is no evidence for an acute fracture. The visualized paranasal sinuses are clear. The mastoid air cells are clear bilaterally. Soft tissues: There is no evidence for focal soft tissue swelling. IMPRESSION: 1. No acute intracerebral pathology. 2. Atrophy and remote small vessel disease. ACT 112: Negative or not required by law. Electronically signed by: Alex Kumar M.D. 06/06/2021 8:36 PM Head CTA 06/06/21 20:12 CT angio head w con CLINICAL HISTORY: Stroke Like Symptoms . Right-sided weakness COMPARISON STUDY: CT brain without contrast from 06/06/2021 CT DOSE: 1008.01 mGy.cm TECHNIQUE: CT Angio of the brain was performed.followed by image post processing with coronal, and sagittal MIP reformats. Contrast Volume: Optiray 320, 121 ml FINDINGS: Vascular findings: There is normal enhancement within the internal carotid arteries bilaterally. There is normal enhancement noted within the anterior, middle and posterior cerebral arteries. Nonvascular findings: There is mild cerebral cortical atrophy and decreased attenuation in the periventricular white matter representing remote small vessel disease. There is no evidence for an acute infarct or cerebral edema. IMPRESSION: Essentially negative CT angiogram of the brain with contrast. ACT 112: Negative or not required by law. Electronically signed by: Alex Kumar M.D. 06/06/2021 9:15 PM Neck CTA 06/06/21 20:12 CT angio neck with con CLINICAL HISTORY: Stroke Like Symptoms . Right-sided weakness COMPARISON STUDY: No previous studies for comparison. CT DOSE: TECHNIQUE: CT Angio of the neck was performed.followed by image post processing with coronal, and sagittal MIP reformats.. Stenosis assessment by NASCET criteria. Contrast Volume: Optiray 320, 121 ml FINDINGS: Vascular findings: Right common carotid artery: Patent without significant stenosis. Right internal carotid artery: Patent without significant stenosis. Right vertebral artery: Patent without significant stenosis. Left common carotid artery: Patent without significant stenosis. Left internal carotid artery: Patent without significant stenosis. Left vertebral artery: Patent without significant stenosis. There is a dominant right vertebral artery when compared to the left. Nonvascular findings: The parotid and submandibular salivary glands appear normal. There is no enlarged cervical adenopathy noted. The airway appears patent. There is asymmetric enlargement right lobe of the thyroid with nodular changes present. Follow-up thyroid ultrasound on a nonemergent basis is recommended. The lung apices appear within normal limits. Impression: 1. Essentially negative CT angiogram of the neck with contrast. 2. Asymmetric enlargement of the right lobe of the thyroid with nodule present. Follow-up thyroid ultrasound on nonemergent basis is recommended. ACT 112: Negative or not required by law. Electronically signed by: Alex Kumar M.D. 06/06/2021 9:19 PM Discharge Plan Visit Data Chief Complaint: Syncope Stated Complaint: SYNCOPAL EPISODE, CONFUSION ED Provider: Napoleon Huddleston Discharge Problem: Stroke-like symptoms, Leukocytosis, Dementia, Syncope Patient Disposition: Admitted As Inpatient Discharge Instructions Interventions: ED Discharge Assessment Last Done: 06/06/21 22:40 Discharge Problem: Leukocytosis Qualifiers: Leukocytosis type: unspecified Qualified Code(s): D72.829 - Elevated white blood cell count, unspecified Dementia Qualifiers: Dementia type: unspecified type Dementia behavioral disturbance: without behavioral disturbance Qualified Code(s): F03.90 - Unspecified dementia without behavioral disturbance Syncope Qualifiers: Syncope type: unspecified Qualified Code(s): R55 - Syncope and collapse
[2021-06-06] MEDS ORDERED: MAGNESIUM SULFATE / D5W 1 GM/100 ML BAG IV STA (20:48)
[2021-06-06 20:57] LABS: Albumin Globulin Ratio 1.7 (0.9-2); Albumin Level 4.7 gm/dl (3.4-5.0); BUN Creatinine Ratio 51.4 (10-20); Bilirubin,Total 0.4 mg/dl (0.2-1.0); Calcium 9.8 mg/dl (8.5-10.1); Creatinine Clr Calc Pharmacy 59.1 ml/min; Est GFR (African American) 87.4 ml/min; Est GFR (Non-African American) 75.4 ml/min; Globulin 2.7 gm/dl (2.5-4.0); Potassium 3.6 mmol/L (3.5-5.1); Total Protein 7.4 gm/dl (6.0-8.3)
--- NOTE | 2021-06-06 21:16 | CT Scan Report ---
CT angio head w con CLINICAL HISTORY: Stroke Like Symptoms . Right-sided weakness COMPARISON STUDY: CT brain without contrast from 06/06/2021 CT DOSE: 1008.01 mGy.cm TECHNIQUE: CT Angio of the brain was performed.followed by image post processing with coronal, and s agittal MIP reformats. Contrast Volume: Optiray 320, 121 ml FINDINGS: Vascular findings: There is normal enhancement within the internal carotid arteries bilaterally. The re is normal enhancement noted within the anterior, middle and posterior cerebral arteries. Nonvascular findings: There is mild cerebral cortical atrophy and decreased attenuation in the perive ntricular white matter representing remote small vessel disease. There is no evidence for an acute in farct or cerebral edema. IMPRESSION: Essentially negative CT angiogram of the brain with contrast. ACT 112: Negative or not required by law. Electronically signed by: Alex Kumar M.D. 06/06/2021 9:15 PM
--- NOTE | 2021-06-06 21:21 | CT Scan Report ---
CT angio neck with con CLINICAL HISTORY: Stroke Like Symptoms . Right-sided weakness COMPARISON STUDY: No previous studies for comparison. CT DOSE: TECHNIQUE: CT Angio of the neck was performed.followed by image post processing with coronal, and sa gittal MIP reformats.. Stenosis assessment by NASCET criteria. Contrast Volume: Optiray 320, 121 ml FINDINGS: Vascular findings: Right common carotid artery: Patent without significant stenosis. Right internal carotid artery: Patent without significant stenosis. Right vertebral artery: Patent without significant stenosis. Left common carotid artery: Patent without significant stenosis. Left internal carotid artery: Patent without significant stenosis. Left vertebral artery: Patent without significant stenosis. There is a dominant right vertebral arter y when compared to the left. Nonvascular findings: The parotid and submandibular salivary glands appear normal. There is no enlarged cervical adenopathy noted. The airway appears patent. There is asymmetric enlargement right lobe of the thyroid with nod ular changes present. Follow-up thyroid ultrasound on a nonemergent basis is recommended. The lung ap ices appear within normal limits. Impression: 1. Essentially negative CT angiogram of the neck with contrast. 2. Asymmetric enlargement of the right lobe of the thyroid with nodule present. Follow-up thyroid ult rasound on nonemergent basis is recommended. ACT 112: Negative or not required by law. Electronically signed by: Alex Kumar M.D. 06/06/2021 9:19 PM
[2021-06-06 21:33] LABS: Magnesium 2.4 mg/dl (1.7-2.4); Phosphorus 3.7 mg/dl (2.5-4.9)
[2021-06-06] MEDS ORDERED: MAGNESIUM SULFATE / D5W 1 GM/100 ML BAG IV ONE (21:45)
--- NOTE | 2021-06-06 21:59 | History & Physical Report ---
Date of Service June 06, 2021 Assessment & Plan (1) Stroke-like symptoms: Plan: This is an 80-year-old female with a history of hypertension and peripheral vascular disease who presented to [facility] for evaluation of syncope. Medications reviewed and include amlodipine 2.5 mg daily, calcium to 50 mg daily, escitalopram 10 mg daily, multivitamin 1 tab daily In the ED, patient was found to be tachycardic with_rhythm at 110 bpm. Afebrile, saturating appropriately on room air. Labs were significant for leukocytosis with left shift, chemistries revealing for_. CTA-H/N and CT-H revealing of small vessel disease and atrophy, but no acute processes. Syncope ; Concern for CVA - RUE>RLE Motor Indiscretion On arrival, patient presented with syncope ; last known normal at 184 on 06/06 Work-up as follows: Non-contrast CT of the head revealing of small vessel disease and atrophy, otherwise no acute processes CTA of the head and neck demonstrating no e/o occlusion, dissection, acute process; R thyroid lobe enlargment noted EKG demonstrating low-grade sinus tachycardia Electrolytes grossly within normal limits Elevated WBC count with L shift appreciated on arrival; unclear source UA and prolactin pending Patient with known history of dementia which has been worsening Primary concern is certainly CVA. The R-sided motor indiscretion (incomplete voluntary movements) may represent focal neurologic deficits in this regard -- however the preceding syncopal episode is somewhat strange. Imaging clear so far. No known h/o arrhythmia or AF, none detected while here; neurocardiogenic cannot completely be excluded however. No e/o active infection at present or symptoms to suggest such - but leukocytosis is noted; no other features of encephalopaty/encephalitis that are ongoing. Mild thyroid issue noted. Stroke alert activated in the ED, received TNKase at 2044 on 06/06 Check TTE, MRI-Brain in AM Maintain blood pressure under 185/105, consider use of labetalol/nicardipine as needed Initiate aspirin after 24 hours post-TNK Initiate atorvastatin PT, OT, speech evaluation ordered Consult neurology: Appreciate insight/recommendations moving forward --> EEG ordered for AM as recommended by [facility] Neurology during TeleStroke conference Monitor on telemetry with fall precautions to screen for arrhythmia in setting of syncope, stroke (may wish to consider Holter/event monitor as outpatient if persistent concerns remain) Neuro-checks as per protocol post tPA Appreciate ICU neurologic and hemodynamic monitoring in the post tPA state x 24hr Check A1c, lipid panel in the a.m. Check prolactin (2) Leukocytosis: Plan: Leukocytosis Presented with WBC 16 with PMN predominance and L shift; denying any recent illness like symptoms -- acute event likely contributing as part of stress physiology/demargination CXR without evidence of active disease within the chest Check UA - otherwise not reporting symptoms; patient with known h/o dementia that is worsening however Ulcer in RLE ntoed; does not presently looked grossly infected Hold on ABX for now, low threshold to start if there are clinical concerns (3) Elevated TSH: Plan: Elevated TSH On arrival, in the setting of physiologic stress, TSH noted to be 8.27 Will require follow-up in the outpatient setting once current events are stabilized CTA demonstrating R thyroid lobe enlargement, recommending outpatient f/u with US when appropriate (4) HTN (hypertension): Plan: Hypertension Continue amlodipine 2.5 mg daily when appropriate As above, maintain blood pressure under 185/105 for next 24 hours; labetalol/nicardipine (5) Peripheral vascular disease: Plan: Peripheral vascular disease History noted. Arterial duplex 05/2021 revealing of severely reduced TBI on the right, moderately on the left, consistent with small vessel disease Atorvastatin, aspirin as above (6) Pressure ulcer of right foot, stage 3: Plan: RLE Foot Wound Follows with Wound Care here at [facility], last seen 06/05/21 with dressing change Consult WOCN while here - appreciate expertise and management recommendations while here non-infectious on exam (7) Dementia: Plan: Dementia History noted especially in context of acute event. Follows with PCP regularly - were in discussions about seeing Neurology for further aid, possibly starting medication PT, OT consultation is greatly appreciated Plan: Code: Full code - discussed directly with patient at bedside Dispo: ICU Diet: NPO until passed screen PPX: s/p tPA, hold for now History of Present Illness Primary Care Provider: Danya Acosta MD This is an 80-year-old female with a history of dementia, hypertension, peripheral vascular disease, and RLE foot wound who presented to [facility] for evaluation of syncope. History is primarily provided by patient's , who is at the bedside along with her son. Around 1845 this evening, patient and her were driving home ( was driving) when she slumped over towards the right door and was "not waking up." After 30 to 45 seconds, she began coming out of it; he brought her to the ER for further evaluation. To clarify, there were no spasms, seizure-like activity, loss of bowel/bladder control, tongue biting during this episode reported by patient or . She denied preceding chest pain or shortness of breath or palpitations. Upon arrival in the ER, patient's got a wheelchair noted that she was having a lot of difficulty controlling her dexterity/limbshe would tell her to move her right arm, and she would move her left arm or complete a different action. He also reported that she was communicating incompletely. While in the process of getting an x-ray, the wind technician noted that she had some weakness on the right side. As such, stroke alert was called. The ER physician noted issues with her being able to follow commands with regards to her right side (was unable to follow commands to lift her palm up on the right and other actions involving the right upper extremity). [facility] Neurology evaluated the patient, who said the 2 leading items on the differential with her right-sided neglect type symptoms were CVA versus seizure. Given the focality of her symptoms and the acuity, they proceeded with TNKase. Per the emergency provider, patient does have a known history of dementia that has been worsening over the last several years. She has been unable to drive for the last 4 years. There has been no events where she has stood in the kitchen at the refrigerator troubles closing the door. She has never previously had right upper extremity/right lower extremity issues. No history of seizures. She endorses drinking at most, 1 glass of wine per night. She denies any use of beer or liquor. She denies any tobacco use history. She lives at home with her . 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 Upon arrival in the ED, blood pressure 130/80, heart rate 111, respiratory rate 18. Temp 36. Normal oxygen saturation. CBC revealing of leukocytosis to 16 with left shift, chemistries with BUN 38, creatinine 0.74, TSH 8.27 with normal free T4. COVID-negative. CT head and CTA head without acute processes. CTA of the neck did not reveal any occlusions/aneurysm, though did show asymmetric enhancement of the thyroid. ECG demonstrating normal sinus rhythm at 86 bpm without ectopy, normal W[place], QRS. Normal axis, normal transition, good R wave progression. No evidence of hypertrophy. No contiguous pathologic Qs. Nonspecific conduction abnormality seen in the inferior leads. Borderline EKG. She was given TNKase at 2044. Allergies Allergy/AdvReac Type Severity Reaction Status Date / Time No Known Allergies Allergy Mild Verified 06/06/21 22:15 Home Medications Medication Instructions Recorded Confirmed Type multivitamin 1 tab PO DAILY 07/07/18 06/06/21 History amlodipine 2.5 mg tablet 2.5 mg PO DAILY 06/06/21 06/06/21 History escitalopram oxalate 10 mg tablet 10 mg PO DAILY 06/06/21 06/06/21 History protein 1 ea PO DAILY 06/06/21 06/06/21 History Past Med/Surg History Medical History Dizziness HTN (hypertension) Hyperglycemia Hypokalemia Hyponatremia Osteoarthritis of knee Surgical History History of total left knee replacement History of tubal ligation Family History Mother , age 96 with dementia heart disease Dementia Heart disease Father , in his later 80s senile dementia of the Alzheimer's type Alzheimer disease Other Diabetes Hypertension Social History Smoking Status: Never smoker Do You Dip or Chew Tobacco: No; Hx Alcohol Use: Yes Alcohol type: wine Alcohol Intake Frequency: Monthly or Less Hx Substance Use: No Preferred Language: Kenyan Communication Ability: Effective Visual Impairment: Limited Hearing Ability: Use of Hearing Aid Consulting Services Project Manager Required: No Beliefs That Will Affect Care: None marital status: Current Living Situation: Spouse current occupational status: retired 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 Other Information That Helps Us Care for You: No Feels Safe at Home: Yes Safety Concerns: Feels Safe At This Time caffeine: Yes during the past year weight has: remained stable Assistive Devices: Cane and Walker Assistive Devices Comment: Patient owns walker and cane but doesn't use them. Review of Systems Review of Systems: as per HPI Physical Exam Physical Exam: General: Very pleasant 80yoF in NAD. HEENT: NCAT. - Eyes - Sclera are white, anicteric, and without injection. PERRL. - Mouth - MMM with no tonsillar edema or exudates. - Neck - No e/o JVD. Cardiac: Normal rate and regular rhythm; S1 and S2 present with no murmurs, rubs, or gallops. Pulmonary: Good respiratory effort with symmetric expansion of the chest. No use of accessory muscles. Lungs were clear to auscultation bilaterally with no crackles or wheezes. Abdominal: Normoactive bowel sounds. Abdomen was soft, nondistended, and non- tender to palpation. Extremities: Upper and lower extremities are warm and well perfused. No peripheral edema. Neuro: - Cranial Nerves: CN I, IX, and X - not assessed. II - PERRL. III/IV/ - EOMs WNL. No nystagmus. V - Facial sensation in tact in all three divisions; jaw opening WNL. VII - Patient is able to smile symmetrically and keep eyes close against resistance. VIII - Patient is able to hear finger snapping equally and appropriately. IX - shrug shoulders against resistance. XI - Soft palate raises equally and appropriately while saying "ah." XII - patient is able to stick out tongue and deviate from [id number] appropriately. - Motor: UE - Finger, wrist, elbow, and shoulder strength is 5/5 bilaterally. LE - Hip, knee, and ankle strength is 5/5 bilaterally. --> Significant difficulty following instructions/demands as they relate to the RUE, and also to RLE. When asked to raise her L arm, she raises her R arm; if asked to supinate her R hand, she completed other actions with her left hand. No clear pattern other than disorganized, partially completed and partially voluntary - but technically incorrect - motor movements. Also during the exam, she would involuntarily raise her R arm. - Sensation: UE and LE sensation to light touch is grossly intact bilaterally by her report Psych: Well-developed, well-nourished, appropriately dressed for occasion. Behavior is cooperative and appropriate. Affect is WNL. Insight is appropriate. Dermatologic: Grade 2-3 ulcer noted on the RLE around the base of the 1st metatarsal. Non erythematous, no discharge, non-TTP. DP pulse soft 1+ Results & Data Results & Data ([facility]) Vital Signs (Past 12 Hours) Vital Signs Temp Pulse Pulse Resp BP BP Pulse Ox 06/06/21 21:45 36.4 C L 92 H 23 154/81 H 94 06/06/21 21:30 36.5 C 89 18 162/90 H 100 06/06/21 21:15 36.5 C 90 18 148/73 H 97 06/06/21 21:00 36.4 C L 97 H 20 158/91 H 96 06/06/21 20:48 94 06/06/21 20:45 96 H 16 153/84 H 99 06/06/21 20:30 96 H 15 169/100 H 99 06/06/21 19:18 36.0 C L 111 H 18 129/83 95 Code Status & VTE Plan VTE Prophylaxis Plan VTE Prophylaxis will be ordered: No Critical Care Time 50 minutes Supervising Physician Co-Signing Physician Notes Attending addendum: I have physically seen this patient, have supervised the medical residents activities, and agree with the H&P unless as otherwise noted. Assessment and Plan: Strokelike symptoms/stroke alert protocol- CT head with small vessel disease and atrophy CTA head neck was negative Consult with telestroke neurology from [facility] recommends tPA Patient received TNKase at 2044 in the ED Stroke with tPA protocol order set enacted Patient admitted to the ICU Consulting neurology Hypertension- Permissive hypertension protocol order set noted Consults to neurology and geochemist team Remaining orders and notations as noted Resident Activity Tracking Resident Involvement: Resident Care Provided Care Provided: Adult Hospital Medicine
[2021-06-06] MEDS ORDERED: PHARMACIST DISCHARGE MED REC CONSULT PRN (23:06)
[2021-06-06 23:39] LABS: Partial Thromboplastin Ratio 0.9; Partial Thromboplastin Time 24.8 Seconds (21.0-31.0)
--- NOTE | 2021-06-06 23:52 | Critical Care Consultation ---
Date of Consultation June 06, 2021 Assessment & Plan (1) Admitted to intensive care unit: Reason Critically Ill: 80-year-old female presenting with strokelike symptoms status post loss of consciousness who underwent TNKase administration. NEURO - * CAM ICU: NEGATIVE * CVA: * Patient initially presented post syncope. She was noted to have RIGHT upper and lower extremity weakness during her stay in the emergency department. CT and CTA of the head was obtained which demonstrated no findings. Patient received TNKase. She is showing improvement of symptoms. She does still have residual RIGHT upper extremity concerns for a hemispatial neglect. * Neurology also questioned possible seizure event in the setting of syncope with associated confusion. ??Faheem's Paralysis. * CT Head, CTA Head/Neck w/o acute findings. * MR/Echo ordered. * EEG in AM per neuro. * Patient showing improvement from a mental status standpoint. * Collect urine sample w/ elevated WBCs. * Precautions per typical unit protocol. * Neuro consult in AM. CARDIAC/VASCULAR - * HTN: * Continue outpatient meds as BP tolerates. * EKG: NSR @ [address]/T-wave changes. QTc 454 ms. * Monitor on telemetry. RESPIRATORY - * No h/o pulmonary disease. * Saturating well on room air. GI/NUTRITION - * Progress diet as tolerated when cleared by swallow evaluation. RENAL/LYTES - * No significant electrolyte derangements. * IVF: Normosol @ 80 mL/hr - * No concerns at this time. ENDO - * No h/o DM or Thyroid Dz * BSGs per unit protocol. ISS --> gtt per unit policy. HEME - * Leukocytosis: * Of questionable clinical significance at this point. * No fevers or sequela of other illnesses. * Will check urine. * CXR w/o findings. * Question degree of stress response. * Would ideally have liked to see a lactate as this might have helped point at seizure. No need to check at this point as patient is improving clinically and will be monitored closely for any further s/s. * Agree w/ PCT to evaluate for other possible sources. * Hemoconcentration: * ??degree of dehydration. ID - * Patient does have chronic wound to the RIGHT foot. This has been ongoing and without acute findings otherwise. * Agree w/ assessment of PCT first. LINES/IV ACCESS - * PIVs x1 DVT PROPHYLAXIS - * Hold on chemoprophylaxis s/p TNKase administration. * SCDs I have personally spent 32 minutes of critical care time in the direct management of this patient. This is a life/limb threatening event. This includes time spent evaluating patient, direct bedside care, chart review, placing orders, interpretation of diagnostic studies, discussion with consultants, patient, and family members, as well as other required patient management activities. This time is exclusive of all separately billable procedures, and teaching time and separate from and in addition to any other critical care service time. Thank you for allowing us to participate in the care of this patient. Please refer to my attending physician's documentation for any further recommendations. (2) Stroke-like symptoms: (3) Leukocytosis: (4) Dementia: (5) Peripheral vascular disease: (6) Elevated TSH: (7) Pressure ulcer of right foot, stage 3: Supervising Physician Co-Signing Physician Notes Patient seen and examined. Discussed with critical care KLEVER. Agree with assessment plan as noted. Please refer to my progress note from 06/07/2021 for additional details History of Present Illness Attending Physician: Corky Ya MD History of Present Illness Patient is an 80-year-old female with a significant past medical history of hypertension, chronic wound of the RIGHT foot, peripheral vascular disease, and recently diagnosed dementia. She was shopping with her today when she had a loss of consciousness while riding as a passenger in the vehicle. This was brief. Afterwards, the patient was confused. She was brought immediately to the emergency department. During evaluation, patient was noted to have concerns for weakness of the RIGHT upper and lower extremities. Stroke alert was called and CT as well as CTA of head and neck were obtained. Images were found to be unremarkable. With patient's ongoing symptoms with associated confusion and RIGHT upper extremity weakness, patient received TNKase. Patient reportedly showed improvement of mentation as well as use of the RIGHT upper extremity. Patient was noted to have an acute leukocytosis as well as hemoconcentration on labs. No other significant laboratory abnormalities noted. Upon evaluation in the ICU, the patient is awake, alert, and oriented. She answers nearly all questions appropriately. She does state that the month is September, but otherwise is aware of the day of the week and year. She knows her birthday and current location. She offers no complaints of headaches, dizziness, lightheadedness, blurry vision, double vision, unilateral weakness/numbness, chest pain, palpitations, shortness of breath, pleuritic pain, nausea, vomiting, abdominal pain, hematochezia, melena, hematuria, or dysuria. Allergies Allergy/AdvReac Type Severity Reaction Status Date / Time No Known Allergies Allergy Mild Verified 06/06/21 22:15 Home Medications Medication Instructions Recorded Confirmed Type multivitamin 1 tab PO DAILY 07/07/18 06/06/21 History amlodipine 2.5 mg tablet 2.5 mg PO DAILY 06/06/21 06/06/21 History escitalopram oxalate 10 mg tablet 10 mg PO DAILY 06/06/21 06/06/21 History protein 1 ea PO DAILY 06/06/21 06/06/21 History Patient History Medical History Dizziness HTN (hypertension) Hyperglycemia Hypokalemia Hyponatremia Osteoarthritis of knee Surgical History History of total left knee replacement History of tubal ligation Family History Mother , age 96 with dementia heart disease Dementia Heart disease Father , in his later 80s senile dementia of the Alzheimer's type Alzheimer disease Other Diabetes Hypertension Social History Smoking Status: Never smoker Do You Dip or Chew Tobacco: No; Hx Alcohol Use: Yes Alcohol type: wine Alcohol Intake Frequency: Monthly or Less Hx Substance Use: No Preferred Language: Belarusian Communication Ability: Effective Visual Impairment: Limited Hearing Ability: Use of Hearing Aid Manager Training Required: No Beliefs That Will Affect Care: None marital status: Current Living Situation: Spouse current occupational status: retired 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 All else were negative. Physical Exam Physical Exam: VITAL SIGNS - Vital signs and nursing notes were reviewed. GENERAL - 80-year-old female appearing her stated age who is in no acute distress. Communicates well with provider and answers questions appropriately. HEAD - Normocephalic, Atraumatic. EYES - PERRL with EOMI bilaterally. Sclera anicteric. Palpebral conjunctiva pink and moist with no injection noted. EARS - No deformities of external structures noted on gross examination bilaterally. NOSE - Midline and without cyanosis. No epistaxis or purulent drainage noted. MOUTH/OROPHARYNX - Without perioral cyanosis. Buccal mucosa pink and dry. NECK - Neck with FROM. Supple to palpation. No nuchal rigidity. LUNGS - Chest wall symmetric without accessory muscle use, intercostals ret ractions, or central cyanosis. Normal vesicular breath sounds CTA B/L. No wheezes, rales, or rhonchi appreciated. CARDIAC - RRR with S1/S2. No murmur, rubs, or gallops appreciated. ABDOMEN - Abdominal contour flat without pulsations or visible masses. BS normoactive all four quadrants. No tenderness, palpable masses, hepatosplenomegaly, or ascites noted. EXTREMITIES - No pretibial edema present. +3/5 radial and dorsalis pedis pulses palpated throughout. FROM with no tremors, fasciculations, or clonus noted on PROM throughout. +5/5 strength noted in UE/LE bilaterally. NEUROLOGIC - Cranial nerves II through XII grossly intact. Sensory intact to light touch throughout. Patient able to perform rapid alternating movements but does appear to have an interesting presentation of a neglect of the RUE. She has equal strength of the extremities throughout, but has difficulty when performing fine motor movements. Negative Drift. PSYCH - A&O to person, place, day of week, year, states month is "September", knows birthday. Pt is very pleasant and interacts well with examiner. Results & Data Results & Data ([facility]) Vital Signs (Past 12 Hours) Vital Signs Temp Pulse Pulse Resp BP BP Pulse Ox 06/06/21 22:30 36.6 C 86 18 133/110 H 97 06/06/21 22:15 36.4 C L 92 H 16 129/83 96 06/06/21 22:00 36.5 C 91 H 17 135/83 94 06/06/21 21:45 36.4 C L 92 H 23 154/81 H 94 06/06/21 21:30 36.5 C 89 18 162/90 H 100 06/06/21 21:15 36.5 C 90 18 148/73 H 97 06/06/21 21:00 36.4 C L 97 H 20 158/91 H 96 06/06/21 20:48 94 06/06/21 20:45 96 H 16 153/84 H 99 06/06/21 20:30 96 H 15 169/100 H 99 06/06/21 19:18 36.0 C L 111 H 18 129/83 95 Coding Level of Care Code Critical Care 1st 30-74 mins Diagnoses Admitted to intensive care unit Z78.9 Stroke-like symptoms R29.90 Leukocytosis D72.829 Dementia F03.90 Peripheral vascular disease I73.9 Elevated TSH R79.89 Pressure ulcer of right foot, stage 3 L89.893 Time Spent (min) 32
[2021-06-07 00:26] LABS: Appearance Urine Clear (Clear); Bacteria Urine Automated Negative (Negative); Bilirubin Urine Negative (Negative); Blood Urine Negative (Negative); Color Urine Yellow; Epithelial Cell Urine Auto 20-30 /lpf (0-5); Glucose Urine UA Negative (Negative); Ketones Urine Negative (Negative); Leukocyte Esterase Urine Trace (Negative); Nitrite Urine Negative (Negative); Protein Urine Negative (Negative); Specific Gravity Urine 1.037 (1.000-1.030); Urobilinogen Urine Negative (Negative)
[2021-06-07 00:51] LABS: RBC Urine Automated 0-4 /hpf (0-4)
[2021-06-07] MEDS ORDERED: NORMOSOL-R 1,000 ML IV SCH (01:30)
[2021-06-07 05:49] LABS: Magnesium 2.5 mg/dl (1.7-2.4); Phosphorus 2.9 mg/dl (2.5-4.9)
[2021-06-07 05:50] LABS: Chol HDL Ratio 3.1 (0-5)
[2021-06-07 07:28] LABS: Basophils # (auto) 0.03 K/uL (0-0.2); Basophils % (auto) 0.3 %; Eosinophils # (auto) 0.16 K/uL (0-0.5); Eosinophils % (auto) 1.4 %; Hematocrit (blood only) 45.1 % (37-47); Hemoglobin 14.6 g/dL (12.0-16.0); Immature Granulocytes # (auto) 0.02 K/uL (0.00-0.02); Immature Granulocytes % (auto) 0.2 %; Lymphocytes # (auto) 0.97 K/uL (1.2-3.4); Lymphocytes % (auto) 8.6 %; Mean Corpuscular Hgb Conc 32.4 g/dL (32-36); Mean Corpuscular Volume 92.8 fL (80-100); Monocytes # (auto) 0.71 K/uL (0.11-0.59); Monocytes % (auto) 6.3 %; Neutrophils # (auto) 9.42 K/uL (1.4-6.5); Neutrophils % (auto) 83.2 %; Platelet Count 398 K/uL (130-400); RDW Coefficient of Variation 14.9 % (11.5-14.5); RDW Standard Deviation 50.4 fL (36.4-46.3); Red Blood Count 4.86 M/uL (4.2-5.4); White Blood Count 11.31 K/uL (4.8-10.8)
[2021-06-07 07:48] LABS: INR 1.1 (0.9-1.1); Prothrombin Time 11.2 Seconds (9.0-12.0)
[2021-06-07 07:53] LABS: BUN Creatinine Ratio 40.3 (10-20); Calcium 8.6 mg/dl (8.5-10.1); Creatinine Clr Calc Pharmacy 70.6 ml/min; Est GFR (African American) 97.3 ml/min; Potassium 3.5 mmol/L (3.5-5.1)
[2021-06-07 07:57] LABS: Estimated Average Glucose 117 mg/dl; Hemoglobin A1C 5.7 % (4.5-5.6)
--- NOTE | 2021-06-07 08:07 | Neurology Consultation ---
Date of Consultation June 07, 2021 Assessment & Plan (1) Syncope: (2) Stroke-like symptoms: (3) Dementia: (4) HTN (hypertension): (5) Elevated TSH: Apparently, this patient had an episode of syncope in the car June 06, left in an upright position and with decreased responsiveness for 30 seconds. She had some confusion thereafter but no seizure activity. She came into the emergency room dehydrated and this may have been orthostasis or vasovagal syncope. No seizure activity was witnessed apparently. Because of some possible stroke-like symptoms (vague right upper extremity weakness or neglect), she was given a thrombolytic. This morning she is quite stable and her neurologic examination is nonfocal with no deficits, meningeal signs, or encephalopathy. She has an underlying dementia. Patient has a history of hypertension, and has had some elevated blood pressure readings during this hospitalization she has a significantly elevated TSH. Hypothyroidism who would contribute to dementia. Recommendations: 1. Awaiting echocardiogram results. 2. MRI of the brain to evaluate for stroke. 3. I see no reason for an EEG at this time her 4. thrombolytics protocol requires a repeat CT scan at 12:00 p.m. hours. 5. Initiate 81 mg aspirin tablet daily after the 1st 24 hours post thrombolytic therapy. 6. Control blood pressure as you are doing, aiming for a mean arterial pressure of 95-100. 7. Given her age and a fasting total cholesterol 163, I would suggest that she is not a high dose statin candidate. Overall, I spent a total of 100 minutes with this case including review of records, review of CT films, direct evaluation the patient bedside, and discussion of the case with the patient and RN at bedside, and Dr. Barcenas, including differential diagnosis and treatment options. History of Present Illness Reason for Consultation: Patient is an 80 year old, who I was asked to see at the request of Dr. Davis, for neurologic consultation regarding stroke-like symptoms post thrombolytic therapy Requesting Physician: Dr. Davis Attending Physician: Aaron Barcenas MD History of Present Illness This patient has a history of hypertension on amlodipine. In addition, there is a history of progressive dementia over 3-4 years. She was riding in the car in the afternoon of 06-06 after shopping. Around 1814, she slumped over into the door unresponsive for about 30 seconds. There was no stiffening , jerking or movements. She woke somewhat groggy. There was no incontinence or tongue biting. The patient really did not remember what happened to her yesterday after she was shopping and this is gathered from the chart (which was her 's history). She arrived in the ER at 1918, with a temperature of 36.0, pulse 111, respiratory rate 18, blood pressure 129/83, and O2 saturation 95%. In the emergency room there was a question of right upper extremity weakness or neglect. CBC showed elevated white count 16 an elevated hemoglobin and hematocrit of 16 and 54. The BUN was 38 prolactin 44 and TSH was 8 CT scan of the head was unremarkable. Chest x-ray was unremarkable. CT angiography of the head and neck were normal with no significant stenoses or vascular anomalies. There was an enlarged right thyroid lobe with possible nodule. She ended up getting TNK with no complications. This morning she has no pain or headache. She has no dizziness and has no weakness or numbness. Nursing reports no new issues overnight or this morning. Blood pressure was 134/1030 earlier this morning spontaneously went to 120s over 80s, which it is currently. Allergies Allergy/AdvReac Type Severity Reaction Status Date / Time No Known Allergies Allergy Mild Verified 06/06/21 22:15 Home Medications Medication Instructions Recorded Confirmed Type multivitamin 1 tab PO DAILY 07/07/18 06/06/21 History amlodipine 2.5 mg tablet 2.5 mg PO DAILY 06/06/21 06/06/21 History escitalopram oxalate 10 mg tablet 10 mg PO DAILY 06/06/21 06/06/21 History protein 1 ea PO DAILY 06/06/21 06/06/21 History Patient History Medical History Dizziness HTN (hypertension) Hyperglycemia Hypokalemia Hyponatremia Osteoarthritis of knee Surgical History History of total left knee replacement History of tubal ligation Family History Mother , age 96 with dementia heart disease Dementia Heart disease Father , in his later 80s senile dementia of the Alzheimer's type Alzheimer disease Other Diabetes Hypertension Social History Smoking Status: Never smoker Do You Dip or Chew Tobacco: No; Hx Alcohol Use: Yes Alcohol type: wine Alcohol Intake Frequency: Monthly or Less Hx Substance Use: No Preferred Language: Arabic Communication Ability: Effective Visual Impairment: Limited Hearing Ability: Use of Hearing Aid Sales Service Manager Required: No Beliefs That Will Affect Care: None marital status: Current Living Situation: Spouse current occupational status: retired 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 [employer] Other Information That Helps Us Care for You: No Feels Safe at Home: Yes Safety Concerns: Feels Safe At This Time caffeine: Yes during the past year weight has: remained stable Assistive Devices: Hearing Aid - Left and Hearing Aid - Right Review of Systems Constitutional: no fever, no fatigue and no weakness Eyes: no diplopia, no eye pain and no worsening vision Ear, Nose, Mouth, Throat: no ear pain, no tinnitus, no hearing loss, no di zziness, no snoring, no hoarseness and no dysphagia Respiratory: no cough and no dyspnea Cardiovascular: no chest pain, no palpitations and no lightheadedness Gastrointestinal: no abdominal pain, no nausea and no vomiting Genitourinary: no dysuria, no urinary frequency and no urinary incontinence Musculoskeletal: no back pain, no neck pain, no radicular pain, no joint pain and no myalgia Integumentary: no rash and no lesions Neurologic: no gait abnormality, no localized weakness, no generalized weakness, no tingling, no numbness, no tremor(s), no abnormal movements, no headache(s), no abnormal speech, no confusion and no memory loss Psychiatric: no depression, no irritability, no anxiety, no difficulty concentrating, no confusion and no hallucinations Endocrine: no fatigue and no flushing Hematologic / Lymphatic: no easy bleeding and no easy bruising Allergy / Immunological: no urticaria and no problem reported Exam (Neuro) Physical Exam: The patient is right-handed. The patient is awake, alert, and attentive. Speech is normal without any aphasia or dysarthria. The patient can name objects, repeat phrases, and has normal spontaneous speech. however, memory is somewhat poor short greater than long- term. She did not know her age, the month, or the year. She knew her name and who the president was. mood was very good affect was appropriate. She was pleasant and cooperative. The discs are sharp with positive venous pulsations bilaterally. There are no exudates, hemorrhages, or blood vessel changes seen. Pupils are 3 mm bilaterally and reactive to light. Extraocular eye muscles are intact without nystagmus. Visual acuity and visual vazquez seem normal grossly to confrontation. There are no deficits to sensation in the face in all 3 distributions of the f ifth cranial nerve bilaterally. Corneal reflexes are positive bilaterally. Facial strength and symmetry was normal bilaterally. Hearing seems normal bilaterally. Palate moves well without asymmetry. There is normal sternocleidomastoid and trapezius (shoulder shrug) strength bilaterally. Tongue is midline with good strength bilaterally. Neck has a full range of motion without discomfort. There are no cervical bruits bilaterally. There are no cranial or ocular bruits. Heart is without murmur. There is a regular rhythm and rate. Cervical, thoracic, and lumbar spine are nontender to palpation. Gait was not tested, but stance sitting up in bed was quite normal. With outstretched arms there is no drift. There are no resting, postural, or action tremors. There is no ataxia with finger to nose testing. There is good facility in the hands. No other abnormal involuntary movements are noted. Motor strength is 5/5 diffusely in the arms bilaterally including deltoids, biceps, triceps, brachioradialis, wrist flexors and extensors, oil recovery operator, and intrinsic hand muscles. Motor strength is 5/5 diffusely in the legs bilaterally including hip flexors, quadriceps, hamstrings, gastrocnemius, tibialis anterior, tibialis posterior, and Peroneii muscles. Toe extensors are normal and there is good bulk in the extensor digitorum brevis muscles bilaterally. The limbs have good tone without rigidity or spasticity. There is no atrophy noted in the muscles. Muscle bulk is normal, there is no tenderness to palpation, no myotonia to percussion, and no fasciculations seen. Sensory examination is intact to touch and pin throughout all 4 limbs diffusely. Reflexes are 2/4 in the biceps, triceps, brachioradialis, quadriceps, and Achilles tendons bilaterally. There is no clonus bilaterally. Toes are downgoing with plantar stimulation bilaterally. Peripheral pulses are present and of normal quality distally in all 4 limbs. There is no peripheral edema noted in the limbs. Results & Data ([facility]) Vital Signs (Past 12 Hours) Vital Signs Temp Pulse Pulse Resp BP BP Pulse Ox 06/07/21 05:45 37 C 78 18 134/103 H 98 06/07/21 04:45 36.8 C 72 20 144/82 H 98 06/07/21 04:15 37 C 88 16 124/89 97 06/07/21 03:45 36.7 C 88 16 138/77 96 06/07/21 03:15 80 18 144/81 H 98 06/07/21 02:45 36.6 C 72 16 144/85 H 99 06/07/21 02:15 36.6 C 94 H 18 158/85 H 98 06/07/21 01:45 91 H 17 173/96 H 96 06/07/21 01:15 82 16 145/98 H 94 06/07/21 00:45 36.4 C L 87 18 140/78 98 06/07/21 00:15 36.8 C 85 16 104/79 96 06/07/21 00:00 101 H 06/06/21 23:51 36.6 C 98 H 16 179/94 H 97 06/06/21 23:45 36.8 C 98 H 18 121/91 96 06/06/21 23:15 36.6 C 94 H 16 164/91 H 98 06/06/21 22:45 36.6 C 98 H 14 179/94 H 98 06/06/21 22:30 36.6 C 86 18 133/110 H 97 06/06/21 22:15 36.4 C L 92 H 16 129/83 96 06/06/21 22:00 36.5 C 91 H 17 135/83 94 06/06/21 21:45 36.4 C L 92 H 23 154/81 H 94 06/06/21 21:30 36.5 C 89 18 162/90 H 100 06/06/21 21:15 36.5 C 90 18 148/73 H 97 06/06/21 21:00 36.4 C L 97 H 20 158/91 H 96 06/06/21 20:48 94 06/06/21 20:45 96 H 16 153/84 H 99 06/06/21 20:30 96 H 15 169/100 H 99 PG Care Time/CCT Total # of Minutes Spent Total Time Spent with Patient: Total time spent is greater than 50% in coordination of care (as documented) at patient's floor/unit and/or counseling patient: Coding Level of Care Code 69907 Initial Inpt Care Lvl 3 Diagnoses Syncope R55 Syncope type: unspecified Dementia F03.90 Dementia behavioral disturbance: without behavioral disturbance Dementia type: unspecified type Stroke-like symptoms R29.90 HTN (hypertension) I10 Elevated TSH R79.89 Time Spent (min) 100 (1) Syncope Syncope type: unspecified Qualified Code(s): R55 - Syncope and collapse (2) Dementia Dementia behavioral disturbance: without behavioral disturbance Dementia type: unspecified type Qualified Code(s): F03.90 - Unspecified dementia without behavioral disturbance
[2021-06-07] MEDS ORDERED: ATORVASTATIN 40 MG TAB PO SCH (09:00)
--- NOTE | 2021-06-07 10:06 | Critical Care Progress Note ---
Date of Service June 07, 2021 Assessment & Plan (1) Admitted to intensive care unit: Plan: Reason Critically Ill: 80-year-old female presenting with strokelike symptoms status post loss of consciousness who underwent TNKase administration. 24-hour events: Patient's been hemodynamically stable. Her neurological complaints resolved. She been seen by neurology. No bleeding complications noted to date. NEURO -possible stroke. Status post TN K administration. Pending neurologic evaluation. Difficult to assess as her underlying dementia makes NIH scoring somewhat complicated. EEG has been canceled by neurology and she has not been loaded on any antiepileptic medications. Continue to follow clinically. PT and OT evaluations pending. Restart her Celexa. Aspirin and lipid-lowering therapy to start tomorrow. CARDIAC/VASCULAR -hypertension: Continue outpatient medications. Blood pressure adequate. Continue outpatient lipid lowering therapy. Holding amlodipine for now RESPIRATORY -no acute issues GI/NUTRITION -tolerating diet RENAL/LYTES -electrolyte replacement protocol. Discontinue IV fluids. - * No concerns at this time. ENDO -glycemic control adequate. Per protocol HEME -presented with elevated white blood cell count decreasing today. Continue to follow. No signs or symptoms of infection currently. ID -no evidence of ongoing infection. Local therapy for the foot escar. LINES/IV ACCESS - * PIVs x1 DVT PROPHYLAXIS - * SCDs Follow-up CT scan scheduled at 9:00 tonight. If no evidence of bleeding, the patient can downgrade to the floor. CC will sign off when transfers from ICU. Please call if questions. (2) Stroke-like symptoms: (3) Leukocytosis: (4) Dementia: (5) Peripheral vascular disease: (6) Elevated TSH: (7) Pressure ulcer of right foot, stage 3: Admission and Anticipated Discharge Date Admission Date: June 06, 2021 Subjective Patient seen and examined. EMR reviewed. Discussed with critical care KLEVER and bedside nurse. Reviewed on multidisciplinary rounds. Patient is asymptomatic this morning. She denies any symptoms of headache double vision numbness and tingling or weakness. She is been hemodynamically stable Review of Systems Review of Systems: All systems reviewed & are unremarkable except as noted in Subjective Physical Exam Constitutional: WD/WN, vitals as above Neck: trachea midline, no thyromegaly Respiratory: normal respiratory effort, lungs clear to auscultation Cardiovascular: RRR, no murmur, no edema Gastrointestinal (Abdomen): normal bowel sounds, soft, nontender, no hepatosplenomegaly Musculoskeletal: Extremities: extremities normal to inspection Skin: no rashes, warm and dry Neurologic: Nonfocal exam Lymphatic: no cervical lymphadenopathy Results & Data Results & Data ([facility]) Vital Signs (Past 12 Hours) Vital Signs Temp Pulse Pulse Resp BP BP BP 06/07/21 08:45 83 17 127/76 06/07/21 07:45 87 18 162/98 H 06/07/21 07:00 36.6 C 06/07/21 06:45 79 17 147/78 H 06/07/21 05:45 37 C 78 18 134/103 H 06/07/21 04:45 36.8 C 72 20 144/82 H 06/07/21 04:15 37 C 88 16 124/89 06/07/21 03:45 36.7 C 88 16 138/77 06/07/21 03:15 80 18 144/81 H 06/07/21 02:45 36.6 C 72 16 144/85 H 06/07/21 02:15 36.6 C 94 H 18 158/85 H 06/07/21 01:45 91 H 17 173/96 H 06/07/21 01:15 82 16 145/98 H 06/07/21 00:45 36.4 C L 87 18 140/78 06/07/21 00:15 36.8 C 85 16 104/79 06/07/21 00:00 101 H 06/06/21 23:51 36.6 C 98 H 16 179/94 H 06/06/21 23:45 36.8 C 98 H 18 121/91 06/06/21 23:15 36.6 C 94 H 16 164/91 H 06/06/21 22:45 36.6 C 98 H 14 179/94 H 06/06/21 22:30 36.6 C 86 18 133/110 H 06/06/21 22:15 36.4 C L 92 H 16 129/83 06/06/21 22:00 36.5 C 91 H 17 135/83 Pulse Ox 06/07/21 08:45 98 06/07/21 07:45 99 06/07/21 07:00 06/07/21 06:45 98 06/07/21 05:45 98 06/07/21 04:45 98 06/07/21 04:15 97 06/07/21 03:45 96 06/07/21 03:15 98 06/07/21 02:45 99 06/07/21 02:15 98 06/07/21 01:45 96 06/07/21 01:15 94 06/07/21 00:45 98 06/07/21 00:15 96 06/07/21 00:00 06/06/21 23:51 97 06/06/21 23:45 96 06/06/21 23:15 98 06/06/21 22:45 98 06/06/21 22:30 97 06/06/21 22:15 96 06/06/21 22:00 94 Critical Care Results & Data Vital Signs (Past 12 Hours) Vital Signs Temp Pulse Pulse Resp BP BP BP 06/07/21 08:45 83 17 127/76 06/07/21 07:45 87 18 162/98 H 06/07/21 07:00 36.6 C 06/07/21 06:45 79 17 147/78 H 06/07/21 05:45 37 C 78 18 134/103 H 06/07/21 04:45 36.8 C 72 20 144/82 H 06/07/21 04:15 37 C 88 16 124/89 06/07/21 03:45 36.7 C 88 16 138/77 06/07/21 03:15 80 18 144/81 H 06/07/21 02:45 36.6 C 72 16 144/85 H 06/07/21 02:15 36.6 C 94 H 18 158/85 H 06/07/21 01:45 91 H 17 173/96 H 06/07/21 01:15 82 16 145/98 H 06/07/21 00:45 36.4 C L 87 18 140/78 06/07/21 00:15 36.8 C 85 16 104/79 06/07/21 00:00 101 H 06/06/21 23:51 36.6 C 98 H 16 179/94 H 06/06/21 23:45 36.8 C 98 H 18 121/91 06/06/21 23:15 36.6 C 94 H 16 164/91 H 06/06/21 22:45 36.6 C 98 H 14 179/94 H 06/06/21 22:30 36.6 C 86 18 133/110 H 06/06/21 22:15 36.4 C L 92 H 16 129/83 06/06/21 22:00 36.5 C 91 H 17 135/83 Pulse Ox 06/07/21 08:45 98 06/07/21 07:45 99 06/07/21 07:00 06/07/21 06:45 98 06/07/21 05:45 98 06/07/21 04:45 98 06/07/21 04:15 97 06/07/21 03:45 96 06/07/21 03:15 98 06/07/21 02:45 99 06/07/21 02:15 98 06/07/21 01:45 96 06/07/21 01:15 94 06/07/21 00:45 98 06/07/21 00:15 96 06/07/21 00:00 06/06/21 23:51 97 06/06/21 23:45 96 06/06/21 23:15 98 06/06/21 22:45 98 06/06/21 22:30 97 06/06/21 22:15 96 06/06/21 22:00 94 Lab & Micro Results (Past 24 Hours) RBC 4.86 M/uL (4.2-5.4) 06/07/21 WBC 11.31 K/uL (4.8-10.8) H 06/07/21 Hgb 14.6 g/dL (12.0-16.0) 06/07/21 Hct 45.1 % (37-47) 06/07/21 MCV 92.8 fL (80-100) 06/07/21 MCH 30.0 pg (25-34) 06/07/21 MCHC 32.4 g/dL (32-36) 06/07/21 RDW Standard Deviation 50.4 fL (36.4-46.3) H 06/07/21 RDW Coefficient of Variation 14.9 % (11.5-14.5) H 06/07/21 Plt Count 398 K/uL (130-400) 06/07/21 MPV 11.0 fL (7.4-10.4) H 06/07/21 Neutrophils (%) (Auto) 83.2 % 06/07/21 Lymphocytes (%) (Auto) 8.6 % 06/07/21 Monocytes # (Auto) 0.71 K/uL (0.11-0.59) H 06/07/21 Eosinophils # (Auto) 0.16 K/uL (0-0.5) 06/07/21 Immature Granulocyte % (Auto) 0.2 % 06/07/21 Neutrophils # (Auto) 9.42 K/uL (1.4-6.5) H 06/07/21 Lymphocytes # (Auto) 0.97 K/uL (1.2-3.4) L 06/07/21 Monocytes # (Auto) 0.71 K/uL (0.11-0.59) H 06/07/21 Eosinophils # (Auto) 0.16 K/uL (0-0.5) 06/07/21 Basophils # (Auto) 0.03 K/uL (0-0.2) 06/07/21 Immature Granulocyte # (Auto) 0.02 K/uL (0.00-0.02) 06/07/21 Na 139 mmol/L (136-145) 06/07/21 K 3.5 mmol/L (3.5-5.1) 06/07/21 Cl 106 mmol/L (98-107) 06/07/21 CO2 28 mmol/L (21-32) 06/07/21 Anion Gap 5 (3-11) 06/07/21 BUN 25 mg/dl (6-23) H 06/07/21 Creatinine 0.62 mg/dl (0.6-1.2) 06/07/21 Estimated GFR ( Amer) 97.3 ml/min 06/07/21 Estimated GFR (Non-Af Amer) 84.0 ml/min 06/07/21 BUN/Creatinine Ratio 40.3 (10-20) H 06/07/21 Glu 99 mg/dl (70-99(Fasting)) 06/07/21 Ca 8.6 mg/dl (8.5-10.1) 06/07/21 Phosphorus Level 2.9 mg/dl (2.5-4.9) 06/07/21 Total Bilirubin 0.4 mg/dl (0.2-1.0) 06/06/21 AST 16 U/L (13-39) 06/06/21 ALT 11 U/L (7-52) 06/06/21 Alkaline Phosphatase 77 U/L (34-104) 06/06/21 TP 7.4 gm/dl (6.0-8.3) 06/06/21 Albumin 4.7 gm/dl (3.4-5.0) 06/06/21 Globulin 2.7 gm/dl (2.5-4.0) 06/06/21 Albumin/Globulin Ratio 1.7 (0.9-2) 06/06/21 Mg 2.5 mg/dl (1.7-2.4) H 06/07/21 05:07 06/07/21 Calcium Level 8.6 mg/dl (8.5-10.1) 06/07/21 06:29 06/07/21 Prothromb Time International Ratio 1.1 (0.9-1.1) 06/07/21 06:29 06/07/21 Diagnostic Findings (Past 24 Hours) Chest X-Ray 06/06/21 19:24 XR chest 1V portable CLINICAL HISTORY: weakness. Evaluate cardiopulmonary status COMPARISON STUDY: 07/06/2018 TECHNIQUE: 1 view of the chest FINDINGS: Single frontal view of the chest demonstrates the cardiomediastinal silhouette to be within normal limits. There is a decreased inspiratory effort with elevation of the hemidiaphragms and crowding of the bronchovascular markings at the lung bases and centrally. The lungs are clear of alveolar opacities. There is no evidence for pleural effusion. There is no evidence for vascular congestion. There is no acute osseous pathology. IMPRESSION: 1. There is a decreased inspiratory effort with otherwise no acute chest disease. ACT 112: Negative or not required by law. Electronically signed by: Alex Kumar M.D. 06/06/2021 8:[address] 06/06/21 20:12 CT head/brain wo con CLINICAL HISTORY: Stroke Like Symptoms . Right-sided weakness COMPARISON STUDY: No previous studies for comparison. CT DOSE: TECHNIQUE: Standard CT of the Brain was performed without IV contrast. A dose lowering technique was utilized adhering to the principles of ALARA. FINDINGS: Extraaxial space: There is no evidence for subdural hematoma. There are no extra-axial fluid collections. Ventricles and cisterns: The ventricles are moderately dilated bilaterally. There is no evidence for midline shift or mass effect. Parenchyma: There is no subarachnoid or intraparenchymal hemorrhage. There is no evidence for an acute infarct or cerebral edema. There is mild cerebral cortical atrophy and decreased attenuation in the periventricular white matter representing remote small vessel disease. There are no gross mass lesions. Osseous structures: There is no evidence for an acute fracture. The visualized paranasal sinuses are clear. The mastoid air cells are clear bilaterally. Soft tissues: There is no evidence for focal soft tissue swelling. IMPRESSION: 1. No acute intracerebral pathology. 2. Atrophy and remote small vessel disease. ACT 112: Negative or not required by law. Electronically signed by: Alex Kumar M.D. 06/06/2021 8:36 PM Head CTA 06/06/21 20:12 CT angio head w con CLINICAL HISTORY: Stroke Like Symptoms . Right-sided weakness COMPARISON STUDY: CT brain without contrast from 06/06/2021 CT DOSE: 1008.01 mGy.cm TECHNIQUE: CT Angio of the brain was performed.followed by image post processing with coronal, and sagittal MIP reformats. Contrast Volume: Optiray 320, 121 ml FINDINGS: Vascular findings: There is normal enhancement within the internal carotid arteries bilaterally. There is normal enhancement noted within the anterior, middle and posterior cerebral arteries. Nonvascular findings: There is mild cerebral cortical atrophy and decreased attenuation in the periventricular white matter representing remote small vessel disease. There is no evidence for an acute infarct or cerebral edema. IMPRESSION: Essentially negative CT angiogram of the brain with contrast. ACT 112: Negative or not required by law. Electronically signed by: Alex Kumar M.D. 06/06/2021 9:15 PM Neck CTA 06/06/21 20:12 CT angio neck with con CLINICAL HISTORY: Stroke Like Symptoms . Right-sided weakness COMPARISON STUDY: No previous studies for comparison. CT DOSE: TECHNIQUE: CT Angio of the neck was performed.followed by image post processing with coronal, and sagittal MIP reformats.. Stenosis assessment by NASCET criteria. Contrast Volume: Optiray 320, 121 ml FINDINGS: Vascular findings: Right common carotid artery: Patent without significant stenosis. Right internal carotid artery: Patent without significant stenosis. Right vertebral artery: Patent without significant stenosis. Left common carotid artery: Patent without significant stenosis. Left internal carotid artery: Patent without significant stenosis. Left vertebral artery: Patent without significant stenosis. There is a dominant right vertebral artery when compared to the left. Nonvascular findings: The parotid and submandibular salivary glands appear normal. There is no enlarged cervical adenopathy noted. The airway appears patent. There is asymmetric enlargement right lobe of the thyroid with nodular changes present. Follow-up thyroid ultrasound on a nonemergent basis is recommended. The lung apices appear within normal limits. Impression: 1. Essentially negative CT angiogram of the neck with contrast. 2. Asymmetric enlargement of the right lobe of the thyroid with nodule present. Follow-up thyroid ultrasound on nonemergent basis is recommended. ACT 112: Negative or not required by law. Electronically signed by: Alex Kumar M.D. 06/06/2021 9:19 PM I & O Totals 24 Hours 06/06/21 06/07/21 06/08/21 06:59 06:59 06:59 Intake Total 1440 / 1440 Output Total 850 / 850 351 / 351 Balance 590 / 590 -351 / -351 Cumulative 06/06/21 18:56 thru 06/07/21 08:41 Intake Total 1440 Output Total 1201 Balance 239 RT Ventilator Mngmt (Last Documented) Ventilator Ordered Settings Respiratory Rate 17 06/07/21 08:45 Ventilator - PT Measurements Respiratory Rate 17 Coding Level of Care Code 63611 Subseq Hosp Care Lvl 3 Diagnoses Admitted to intensive care unit Z78.9 Stroke-like symptoms R29.90 Leukocytosis D72.829 Leukocytosis type: unspecified Dementia F03.90 Dementia behavioral disturbance: without behavioral disturbance Dementia type: unspecified type Peripheral vascular disease I73.9 Elevated TSH R79.89 Pressure ulcer of right foot, stage 3 L89.893 (1) Leukocytosis Leukocytosis type: unspecified Qualified Code(s): D72.829 - Elevated white blood cell count, unspecified (2) Dementia Dementia behavioral disturbance: without behavioral disturbance Dementia type: unspecified type Qualified Code(s): F03.90 - Unspecified dementia without behavioral disturbance
--- NOTE | 2021-06-07 10:08 | XCELERA ---
[id number] \\[id number]___[id number]
--- NOTE | 2021-06-07 13:10 | Magnetic Resonance Report ---
Brain MRI WITHOUT CONTRAST HISTORY: Syncopal episode. suspected CVA, eval for ischemia TECHNIQUE: Multiplanar multisequence MRI of the brain was performed without the use of contrast. COMPARISON STUDY: Head CT 06/06/2021. FINDINGS: There are 3 small foci of restricted diffusion seen within the left posterior frontal lobe and left parietal lobe near the high convexity. Dominant focus measures 1.7 cm. These are consistent with acute infarcts. There is associated small foci of cytotoxic edema at the areas of infarct. Mild periventricular white matter T2 hyperintensity is nonspecific but suggestive of microvascular ischemi c change. There is an old small infarct within the right posterior temporal lobe. Mild to moderate at rophic changes are seen within the brain which are likely age-related. No hematoma or midline shift i dentified. The midline structures are intact. The paranasal sinuses and mastoid air cells are clear. Evidence for prior lens repair. The major vascular flow-voids at the skull base are well-maintained. IMPRESSION: 1. A few small acute infarcts within the left high convexity. 2. Additional findings as described above. ACT 112: Negative or not required by law. Electronically signed by: Jelani Ohara M.D. 06/07/2021 1:09 PM
--- NOTE | 2021-06-07 13:24 | Electrocardiogram Report ---
Test Reason : Blood Pressure : / mmHG Vent. Rate : 086 BPM Atrial Rate : 086 BPM P-R Int : 162 ms QRS Dur : 084 ms QT Int : 380 ms P-R-T Axes : 113 -10 036 degrees QTc Int : 454 ms Poor data quality, interpretation may be adversely affected Normal sinus rhythm Cannot rule out Anterior infarct , age undetermined Abnormal ECG When compared with ECG of 06-JUL-2018 23:47, Premature ventricular complexes are no longer Present Nonspecific T wave abnormality, worse in Inferior leads Confirmed by Mj Quiroz ([id number]) on 06/07/2021 1:24:19 PM Referred By: REFERRED SELF Confirmed By:Mj Quiroz
--- NOTE | 2021-06-07 17:37 | Hospitalist Progress Note ---
Date of Service June 07, 2021 Assessment & Plan (1) Acute CVA (cerebrovascular accident): Plan: Blood pressure currently well controlled without anti-hypertensives. CVA confirmed on MRI earlier today - left frontal and parietal lobe infarcts. CT head 24 hours after TNK pending - will remain in ICU pending this. Continue on telemetry for 48 hours to assess for atrial fibrillation. Will need 30 day monitor on discharge. TTE without intraarterial shunt or thrombus Appreciate neurology consult PT/OT assessments tomorrow Start ASA and atorvastatin tomorrow. LDL 93. HbA1C 5.7. (2) Leukocytosis: Plan: Improving. Suspect stress reaction from CVA. Continue to monitor with CBC in AM. (3) Dementia: Plan: Has some difficulty following commands - especially following fingers with her eyes but orientated to place and person. (4) Peripheral vascular disease: Plan: History noted. Arterial duplex 05/2021 revealing of severely reduced TBI on the right, moderately on the left, consistent with small vessel disease - calf vessels widely patent Atorvastatin, aspirin as above - likely contributing towards pressure ulcer below - being managed by wound care clinic. (5) Elevated TSH: Plan: Normal free T4 In setting of CVA unclear what her baseline is and in setting of normal T4 would not start levothyroxine acutely Repeat TSH in approximately 4 weeks. (6) Pressure ulcer of right foot, stage 3: Plan: No surrounding cellulitis Plan from wound care 06/04 to get MRI to assess for OM. Will consider this during inpatient stay after repeat CT head ruled out intracranial hemorrhage. (7) Syncope: Plan: Suspect due to CVA as above (8) HTN (hypertension): Plan: Re-introduce amlodipine as able when ok by neurology. Allow permissive hypertension currently Plan: VTE Prophylaxis - deferred due to TNK Diet - regular Disposition - continued admission in ICU Admission and Anticipated Discharge Date Admission Date: June 06, 2021 Subjective Patient and feels she is back at her baseline status. reports she is using her right hand to eat which she wasn't able to do yesterday. No difficulty noticed with co-ordination. She is yet to get up and walk due to TNK given. No change in speech, vision or hearing. No change in sensation in extremities. Review of Systems Review of Systems: All systems reviewed & are unremarkable except as noted in Subjective Physical Exam Constitutional: WD/WN, vitals as above Eyes: PERRL, conjunctivae normal, anicteric sclerae mild dropping of left eyelid - patient reports chronic ENMT: external ear and nose normal, oropharynx normal Neck: trachea midline, no thyromegaly Respiratory: normal respiratory effort, lungs clear to auscultation Cardiovascular: RRR, no murmur, no edema Gastrointestinal (Abdomen): normal bowel sounds, soft, nontender, no hepatosplenomegaly Musculoskeletal: no cyanosis or clubbing, extremities motor strength 5/5 Skin: no rashes, warm and dry Neurologic: moves all extremities and awake; no focal motor deficits and not confused Speech / Cognition: normal speech Motor/Sensory: no pronator drift Cranial Nerves: PERRL, normal accommodation, EOM intact bilaterally, normal facial strength (mild chronic drooping of left eyelid), tongue midline, able to rotate head bilaterally, able to elevate shoulders bilaterally, no nystagmus and symmetric palate elevation Coordination: normal [id number] test Psychiatric: A+Ox3, euthymic affect Results & Data Results & Data ([facility]) Vital Signs (Past 12 Hours) Vital Signs Temp Pulse Pulse Resp BP BP Pulse Ox 06/07/21 11:45 84 83 20 121/85 96 06/07/21 10:45 81 15 112/93 98 06/07/21 09:45 81 16 109/79 96 06/07/21 08:45 83 17 127/76 98 06/07/21 08:00 76 06/07/21 07:45 87 18 162/98 H 99 06/07/21 07:00 36.6 C 06/07/21 06:45 79 17 147/78 H 98 06/07/21 05:45 37 C 78 18 134/103 H 98 PG Care Time/CCT Total # of Minutes Spent Total Time Spent with Patient: Total time spent is greater than 50% in coordination of care (as documented) at patient's floor/unit and/or counseling patient: Coding Level of Care Code 86569 Subseq Hosp Care Lvl 3 Diagnoses Leukocytosis D72.829 Leukocytosis type: unspecified Dementia F03.90 Dementia behavioral disturbance: without behavioral disturbance Dementia type: unspecified type Peripheral vascular disease I73.9 Elevated TSH R79.89 Pressure ulcer of right foot, stage 3 L89.893 Acute CVA (cerebrovascular accident) I63.9 Syncope R55 Syncope type: unspecified HTN (hypertension) I10 (1) Dementia Dementia behavioral disturbance: without behavioral disturbance Dementia type: unspecified type Qualified Code(s): F03.90 - Unspecified dementia without behavioral disturbance (2) Leukocytosis Leukocytosis type: unspecified Qualified Code(s): D72.829 - Elevated white blood cell count, unspecified (3) Syncope Syncope type: unspecified Qualified Code(s): R55 - Syncope and collapse
--- NOTE | 2021-06-07 21:50 | CT Scan Report ---
CT SCAN OF THE BRAIN WITHOUT IV CONTRAST CLINICAL HISTORY: Stroke status post TPA. COMPARISON STUDY: CT of the brain dated 06/06/2021. MRI of the brain dated 06/07/2021. TECHNIQUE: Unenhanced axial CT scan of the brain is performed from the vertex to the skull base. A do se lowering technique was utilized adhering to the principles of ALARA. CT DOSE: 537.48 mGy.cm FINDINGS: Brain parenchyma: There is loss of collado-white matter differentiation consistent with small evolving c ortical infarcts in the left frontal and parietal region. No new foci of acute ischemia are suspected . There is no evidence of hemorrhagic conversion. There are age-related involutional changes noting mild subcortical and periventricular microangiopathic change. There is no midline shift. No extra-axi al fluid collection is seen. Ventricles, sulci, cisterns: Prominent secondary to involutional change. Intracranial vasculature: There is atherosclerotic calcification of the cavernous carotid and vertebr al arteries. Calvarium: Unremarkable. Sinuses and mastoids: The visualized paranasal sinuses are clear. The mastoid air cells are well pneu matized. Orbits: The bony orbits are grossly intact. There are bilateral ocular lens implants. IMPRESSION: 1. There are small evolving left frontal and parietal lobe infarcts. 2. There is no evidence of hemorrhagic conversion. 3. There is no mass effect and no new foci of acute ischemia are suspected. ACT 112: Negative or not required by law. Electronically signed by: Kobe Fermin M.D. 06/07/2021 9:47 PM
--- NOTE | 2021-06-08 05:20 | Billing Data ---
Date of Service June 08, 2021 Coding Level of Care Code Critical Care mins
[2021-06-08 05:56] LABS: Magnesium 2.2 mg/dl (1.7-2.4); Phosphorus 3.2 mg/dl (2.5-4.9)
--- NOTE | 2021-06-08 07:41 | Critical Care Progress Note ---
Date of Service June 08, 2021 Assessment & Plan (1) Admitted to intensive care unit: Plan: Reason Critically Ill: 80-year-old female presenting with strokelike symptoms status post loss of consciousness who underwent TNKase administration. 24-hour events: CT of the head demonstrated evolving multifocal areas of ischemia but no evidence of hemorrhage. She is remained hemodynamically stable. NEURO - stroke. Status post TN K administration. MRI demonstrates multifocal infarcts concerning for embolic source. Her CTA demonstrated no significant stenosis in the cerebral vasculature. Echocardiogram demonstrated no evidence of ASD/PFO and no valvular abnormalities to account for the potential embolic phenomenon. Defer to neurology as to whether or not the patient would benefit from a loop recorder or potential anticoagulation. Continue PT OT evaluations CARDIAC/VASCULAR -hypertension: Continue outpatient medications. Blood pressure adequate. Continue outpatient lipid lowering therapy. Holding amlodipine RESPIRATORY -no acute issues GI/NUTRITION -tolerating diet RENAL/LYTES -electrolyte replacement protocol. Discontinue IV fluids. - * No concerns at this time. ENDO -glycemic control adequate. Per protocol HEME -presented with elevated white blood cell count decreasing today. Continue to follow. No signs or symptoms of infection currently. ID -no evidence of ongoing infection. Local therapy for the foot escar. LINES/IV ACCESS - * PIVs x1 DVT PROPHYLAXIS - * SCDs Patient can transfer out of the ICU. Will discuss with hospitalist. Critical care services will sign off. Feel free to contact us if we can be of additional assistance (2) Stroke-like symptoms: (3) Leukocytosis: (4) Dementia: (5) Peripheral vascular disease: (6) Elevated TSH: (7) Pressure ulcer of right foot, stage 3: Admission and Anticipated Discharge Date Admission Date: June 06, 2021 Subjective Patient seen and examined. EMR reviewed. Discussed with critical care nurse and critical care KLEVER overnight. No events overnight. Her CT scan last night showed no evidence of hemorrhage. Patient was not yet transferred out of the ICU. She is confused and demented but otherwise doing well. Review of Systems Review of Systems: All systems reviewed & are unremarkable except as noted in Subjective Physical Exam Constitutional: WD/WN, vitals as above Neck: trachea midline, no thyromegaly Respiratory: normal respiratory effort, lungs clear to auscultation Cardiovascular: RRR, no murmur, no edema Gastrointestinal (Abdomen): normal bowel sounds, soft, nontender, no hepatosplenomegaly Musculoskeletal: Extremities: extremities normal to inspection Skin: no rashes, warm and dry Lymphatic: no cervical lymphadenopathy Results & Data Results & Data ([facility]) Vital Signs (Past 12 Hours) Vital Signs Temp Pulse Pulse Resp BP BP Pulse Ox 06/08/21 00:00 36.8 C 73 20 158/91 H 95 06/07/21 23:00 36 C L 69 71 21 148/84 H 141/72 H 98 06/07/21 22:00 36.9 C 79 70 14 151/90 H 100 06/07/21 21:00 36.7 C 79 72 16 140/89 148/84 H 95 06/07/21 20:00 36.6 C 69 70 15 147/81 H 147/81 H 96 Critical Care Results & Data Vital Signs (Past 12 Hours) Vital Signs Temp Pulse Pulse Resp BP BP Pulse Ox 06/08/21 00:00 36.8 C 73 20 158/91 H 95 06/07/21 23:00 36 C L 69 71 21 148/84 H 141/72 H 98 06/07/21 22:00 36.9 C 79 70 14 151/90 H 100 06/07/21 21:00 36.7 C 79 72 16 140/89 148/84 H 95 06/07/21 20:00 36.6 C 69 70 15 147/81 H 147/81 H 96 Lab & Micro Results (Past 24 Hours) No Data to Display Phosphorus Level 3.2 mg/dl (2.5-4.9) 06/08/21 Mg 2.2 mg/dl (1.7-2.4) 06/08/21 04:55 06/08/21 Microbiology 06/06/21 12:45 Urine Culture - Final Urine,Clean Catch More than three types of organisms present, all moderate counts mixed probable skin richie. No further identifications or sensitivities to follow. Diagnostic Findings (Past 24 Hours) Brain MRI 06/07/21 09:00 Brain MRI WITHOUT CONTRAST HISTORY: Syncopal episode. suspected CVA, eval for ischemia TECHNIQUE: Multiplanar multisequence MRI of the brain was performed without the use of contrast. COMPARISON STUDY: Head CT 06/06/2021. FINDINGS: There are 3 small foci of restricted diffusion seen within the left posterior frontal lobe and left parietal lobe near the high convexity. Dominant focus measures 1.7 cm. These are consistent with acute infarcts. There is associated small foci of cytotoxic edema at the areas of infarct. Mild periventricular white matter T2 hyperintensity is nonspecific but suggestive of microvascular ischemic change. There is an old small infarct within the right posterior temporal lobe. Mild to moderate atrophic changes are seen within the brain which are likely age-related. No hematoma or midline shift identified. The midline structures are intact. The paranasal sinuses and mastoid air cells are clear. Evidence for prior lens repair. The major vascular flow-voids at the skull base are well-maintained. IMPRESSION: 1. A few small acute infarcts within the left high convexity. 2. Additional findings as described above. ACT 112: Negative or not required by law. Electronically signed by: Jelani Ohara M.D. 06/07/2021 1:[address] 06/07/21 21:00 CT SCAN OF THE BRAIN WITHOUT IV CONTRAST CLINICAL HISTORY: Stroke status post TPA. COMPARISON STUDY: CT of the brain dated 06/06/2021. MRI of the brain dated 06/07/2021. TECHNIQUE: Unenhanced axial CT scan of the brain is performed from the vertex to the skull base. A dose lowering technique was utilized adhering to the principles of ALARA. CT DOSE: 537.48 mGy.cm FINDINGS: Brain parenchyma: There is loss of collado-white matter differentiation consistent with small evolving cortical infarcts in the left frontal and parietal region. No new foci of acute ischemia are suspected. There is no evidence of hemorrhagic conversion. There are age-related involutional changes noting mild subcortical and periventricular microangiopathic change. There is no midline shift. No extra-axial fluid collection is seen. Ventricles, sulci, cisterns: Prominent secondary to involutional change. Intracranial vasculature: There is atherosclerotic calcification of the cavernous carotid and vertebral arteries. Calvarium: Unremarkable. Sinuses and mastoids: The visualized paranasal sinuses are clear. The mastoid air cells are well pneumatized. Orbits: The bony orbits are grossly intact. There are bilateral ocular lens implants. IMPRESSION: 1. There are small evolving left frontal and parietal lobe infarcts. 2. There is no evidence of hemorrhagic conversion. 3. There is no mass effect and no new foci of acute ischemia are suspected. ACT 112: Negative or not required by law. Electronically signed by: Kobe Fermin M.D. 06/07/2021 9:47 PM I & O Totals 24 Hours 06/07/21 06/08/21 06/09/21 06:59 06:59 06:59 Intake Total 1440 / 1440 1291 / 1291 Output Total 850 / 850 2051 Balance 590 / 590 -761 / -761 Cumulative 06/06/21 18:56 thru 06/08/21 06:00 Intake Total 2731 Output Total 2902 Balance -171 RT Ventilator Mngmt (Last Documented) Ventilator Ordered Settings Respiratory Rate 20 06/08/21 00:00 Ventilator - PT Measurements Respiratory Rate 20 Coding Level of Care Code 04097 Subseq Hosp Care Lvl 2 Diagnoses Admitted to intensive care unit Z78.9 Stroke-like symptoms R29.90 Leukocytosis D72.829 Leukocytosis type: unspecified Dementia F03.90 Dementia behavioral disturbance: without behavioral disturbance Dementia type: unspecified type Peripheral vascular disease I73.9 Elevated TSH R79.89 Pressure ulcer of right foot, stage 3 L89.893 (1) Leukocytosis Leukocytosis type: unspecified Qualified Code(s): D72.829 - Elevated white blood cell count, unspecified (2) Dementia Dementia behavioral disturbance: without behavioral disturbance Dementia type: unspecified type Qualified Code(s): F03.90 - Unspecified dementia without behavioral disturbance
[2021-06-08] MEDS: ATORVASTATIN 10 MG TAB PO SCH (07:48)
[2021-06-08] MEDS: ASPIRIN 81 MG ECTAB PO SCH (07:48)
[2021-06-08] MEDS: ESCITALOPRAM OXALATE 10 MG TAB PO SCH (07:48)
--- NOTE | 2021-06-08 08:27 | Hospitalist Progress Note ---
Date of Service June 08, 2021 Assessment & Plan (1) Acute CVA (cerebrovascular accident): Plan: Blood pressure currently well controlled without anti-hypertensives. Mean arterial pressure at aim 95-100 CVA confirmed on MRI earlier today - left frontal and parietal lobe infarcts. CT head @ 24 hours -small evolving left frontal and parietal lobe infarcts with no evidence of hemorrhagic conversion. Continue on telemetry for 48 hours to assess for atrial fibrillation. Will need 30 day monitor on discharge. TTE without intraarterial shunt or thrombus Appreciate neurology consult PT/OT assessments Started ASA and atorvastatin. LDL 93. HbA1C 5.7. (2) Leukocytosis: Plan: Improving. Suspect stress reaction from CVA. Continue to monitor with CBC in AM. (3) Dementia: Plan: Has some difficulty following commands - especially following fingers with her eyes but orientated to place and person. At baseline per . We will get B12 level in a.m. as this has not previously been done. (4) Peripheral vascular disease: Plan: History noted. Arterial duplex 05/2021 revealing of severely reduced TBI on the right, moderately on the left, consistent with small vessel disease - calf vessels widely patent Atorvastatin, aspirin as above - likely contributing towards pressure ulcer below - being managed by wound care clinic. (5) Elevated TSH: Plan: Normal free T4 In setting of CVA unclear what her baseline is and in setting of normal T4 would not start levothyroxine acutely Repeat TSH in approximately 4 weeks. (6) Pressure ulcer of right foot, stage 3: Plan: No surrounding cellulitis Plan from wound care 06/04 to get MRI to assess for OM. (7) Syncope: Plan: Suspect due to CVA as above (8) HTN (hypertension): Plan: Re-introduce amlodipine as able when ok by neurology. Currently at aim BP MAP 95-100 Plan: VTE Prophylaxis - no chemical prophylaxis as mobile, no SCDs due to falls risk and impusivity Diet - heart healthy [facility] tomorrow Admission and Anticipated Discharge Date Admission Date: June 06, 2021 Subjective Patient pleasantly confused this morning. No weakness in all 4 extremities. Using her right hand to eat. Getting up and walking around the bed. Disorientated to date; year October, unknown day of the week. She is orientated to place and person. She cannot remember her diagnosis and think she is here for a heart issue. Review of Systems Review of Systems: All systems reviewed & are unremarkable except as noted in Subjective Physical Exam Constitutional: WD/WN, vitals as above Eyes: PERRL, conjunctivae normal, anicteric sclerae ENMT: external ear and nose normal, oropharynx normal Neck: trachea midline, no thyromegaly Respiratory: normal respiratory effort, lungs clear to auscultation Cardiovascular: RRR, no murmur, no edema Gastrointestinal (Abdomen): normal bowel sounds, soft, nontender, no hepatosplenomegaly Musculoskeletal: no cyanosis or clubbing, extremities motor strength 5/5 Skin: no rashes, warm and dry Neurologic: moves all extremities and awake; no focal motor deficits and not confused Speech / Cognition: normal speech Motor/Sensory: no pronator drift Cranial Nerves: PERRL, normal accommodation, EOM intact bilaterally, normal facial strength (mild chronic drooping of left eyelid), tongue midline, able to rotate head bilaterally, able to elevate shoulders bilaterally, no nystagmus and symmetric palate elevation Coordination: normal [id number] test Psychiatric: A+Ox3, euthymic affect Results & Data Results & Data ([facility]) Vital Signs (Past 12 Hours) Vital Signs Temp Pulse Pulse Resp BP BP Pulse Ox 06/08/21 00:00 36.8 C 73 20 158/91 H 95 06/07/21 23:00 36 C L 69 71 21 148/84 H 141/72 H 98 06/07/21 22:00 36.9 C 79 70 14 151/90 H 100 06/07/21 21:00 36.7 C 79 72 16 140/89 148/84 H 95 PG Care Time/CCT Total # of Minutes Spent Total Time Spent with Patient: Total time spent is greater than 50% in coordination of care (as documented) at patient's floor/unit and/or counseling patient: Coding Level of Care Code 48517 Subseq Hosp Care Lvl 2 Diagnoses Acute CVA (cerebrovascular accident) I63.9 Leukocytosis D72.829 Leukocytosis type: unspecified Dementia F03.90 Dementia behavioral disturbance: without behavioral disturbance Dementia type: unspecified type Peripheral vascular disease I73.9 Elevated TSH R79.89 Pressure ulcer of right foot, stage 3 L89.893 Syncope R55 Syncope type: unspecified HTN (hypertension) I10 (1) Dementia Dementia behavioral disturbance: without behavioral disturbance Dementia type: unspecified type Qualified Code(s): F03.90 - Unspecified dementia without behavioral disturbance (2) Leukocytosis Leukocytosis type: unspecified Qualified Code(s): D72.829 - Elevated white blood cell count, unspecified (3) Syncope Syncope type: unspecified Qualified Code(s): R55 - Syncope and collapse
--- NOTE | 2021-06-08 11:13 | Neurology Progress Note ---
Date of Service June 08, 2021 Assessment & Plan (1) Syncope: (2) Stroke-like symptoms: (3) Dementia: (4) HTN (hypertension): (5) Elevated TSH: Plan: This patient had an episode of syncope in the car June 06, left in an upright position and with decreased responsiveness for 30 seconds. She had some confusion thereafter but no seizure activity. She came into the emergency room dehydrated and this may have been orthostasis or vasovagal syncope. No seizure activity was witnessed apparently. Because of some possible stroke-like symptoms (vague right upper extremity weakness or neglect), she was given a thrombolytic. MRI of the brain revealed several small left parietal acute strokes. It is very well possible that this would have been a much larger neurologic event/ stroke had she not but given a thrombolytic. CT scan of the head showed no hemorrhage. This morning she is quite stable and her neurologic examination is nonfocal with no deficits, meningeal signs, or encephalopathy. She has an underlying dementia. given her MRI she probably has a vascular component to her memory. I cannot exclude early senile dementia of the Alzheimer's type. Patient has a history of hypertension, and has had some elevated blood pressure readings during this hospitalization She has a significantly elevated TSH. Hypothyroidism could contribute to dementia. Recommendations: 1. Continue 81 mg aspirin tablet daily 2. Control blood pressure as you are doing, aiming for a mean arterial pressure of 95-100. 3. Given her age and a fasting total cholesterol 163, I would suggest that she is not a high dose statin candidate, but continue atorvastatin 10 mg daily 4. Increase activity as able. 5. I will follow up as an outpatient ( neurology PA in 1-2 weeks ) and make additional recommendations regarding evaluation and treatment of her dementia. 6. Consider levothyroxine for elevated TSH. Overall, I spent a total of 45 minutes with this case including review of records, review of MRI films, direct evaluation the patient bedside, and discussion of the case with the patient , , and RN at bedside, and Dr. Barcenas, including differential diagnosis and treatment options. Admission and Anticipated Discharge Date Admission Date: June 06, 2021 Subjective Patient feels very good today with no pain, headache, vision issue, dizziness, weakness, or numbness. Nursing reports no events overnight. She has been in normal sinus rhythm. MRI of the brain revealed some small scattered left parietal acute strokes. There was some moderate old small vessel ischemic disease and mild generalized atrophy as well. I reviewed these films. Echocardiogram showed mild concentric LVH with no significant abnormalities. The patient's is present and I spoke to him at length regarding her history. He feels that she is currently at baseline with her mental status. She was very confused after her syncopal event June 06. He feels that her mental status and memory is back to baseline. She has been having at least a 6 month fairly rapid decline in short greater than long-term memory. She remains a pleasant however. Results & Data ([facility]) Vital Signs (Past 12 Hours) Vital Signs Temp Pulse Resp BP Pulse Ox 06/08/21 00:00 36.8 C 73 20 158/91 H 95 Exam (Neuro) Physical Exam: She is awake and alert. Speech is without aphasia or dysarthria. Mood is reasonable what affect is appropriate. She has memory deficits both long and short-term to conversation. Extraocular eye muscles are intact without nystagmus. There is no facial droop. Tongue is midline. She gets very confused with following 2 step commands but there is no ataxia, weakness, or dysmetria. Stance sitting up in the bed is quite normal. PG Care Time/CCT Total # of Minutes Spent Total Time Spent with Patient: Total time spent is greater than 50% in coordination of care (as documented) at patient's floor/unit and/or counseling patient: Coding Level of Care Code 10500 Subseq Hosp Care Lvl 3 Diagnoses Syncope R55 Syncope type: unspecified Stroke-like symptoms R29.90 Dementia F03.90 Dementia behavioral disturbance: without behavioral disturbance Dementia type: unspecified type HTN (hypertension) I10 Elevated TSH R79.89 Time Spent (min) 45 (1) Syncope Syncope type: unspecified Qualified Code(s): R55 - Syncope and collapse (2) Dementia Dementia behavioral disturbance: without behavioral disturbance Dementia type: unspecified type Qualified Code(s): F03.90 - Unspecified dementia without behavioral disturbance
[2021-06-09] MEDS: ESCITALOPRAM OXALATE 10 MG TAB PO SCH (08:34)
[2021-06-09] MEDS: ASPIRIN 81 MG ECTAB PO SCH (08:34)
[2021-06-09] MEDS: ATORVASTATIN 10 MG TAB PO SCH (08:34)
[2021-06-09 08:52] LABS: Basophils # (auto) 0.03 K/uL (0-0.2); Basophils % (auto) 0.4 %; Eosinophils # (auto) 0.23 K/uL (0-0.5); Eosinophils % (auto) 2.7 %; Hematocrit (blood only) 47.9 % (37-47); Hemoglobin 15.9 g/dL (12.0-16.0); Immature Granulocytes # (auto) 0.03 K/uL (0.00-0.02); Immature Granulocytes % (auto) 0.4 %; Lymphocytes # (auto) 1.26 K/uL (1.2-3.4); Lymphocytes % (auto) 14.9 %; Mean Corpuscular Hemoglobin 30.2 pg (25-34); Mean Corpuscular Hgb Conc 33.2 g/dL (32-36); Mean Corpuscular Volume 91.1 fL (80-100); Mean Platelet Volume 10.6 fL (7.4-10.4); Monocytes # (auto) 0.63 K/uL (0.11-0.59); Monocytes % (auto) 7.5 %; Neutrophils # (auto) 6.25 K/uL (1.4-6.5); Neutrophils % (auto) 74.1 %; Platelet Count 352 K/uL (130-400); RDW Coefficient of Variation 14.9 % (11.5-14.5); RDW Standard Deviation 49.8 fL (36.4-46.3); Red Blood Count 5.26 M/uL (4.2-5.4); White Blood Count 8.43 K/uL (4.8-10.8)
[2021-06-09 09:01] LABS: BUN Creatinine Ratio 32.8 (10-20); Calcium 9.3 mg/dl (8.5-10.1); Creatinine Clr Calc Pharmacy 67.6 ml/min; Est GFR (African American) 96.3 ml/min; Est GFR (Non-African American) 83.1 ml/min; Potassium 4.1 mmol/L (3.5-5.1)
[2021-06-09] MEDS ORDERED: STROKE PATIENT DISCHARGE STA (14:54)
--- NOTE | 2021-06-09 15:13 | Pharmacy Report ---
Pharmacist Stroke Counseling - Date of Service June 09, 2021 - Scope: Pharmacy has been consulted to provide medication discharge counseling for this patient admitted with [ischemic stroke] [hemorrhagic stroke] [transient ischemic attack] as per the Pharmacist Discharge Counseling for Stroke Patients Protocol. - Medications on Discharge: Home Medications Medication Instructions Recorded Confirmed multivitamin 1 tab PO DAILY 07/07/18 06/06/21 amlodipine 2.5 mg tablet 2.5 mg PO DAILY 06/06/21 06/06/21 escitalopram oxalate 10 mg tablet 10 mg PO DAILY 06/06/21 06/06/21 protein 1 ea PO DAILY 06/06/21 06/06/21 New Rx's Medication Instructions Recorded aspirin 81 mg tablet,delayed 81 mg PO QAM #30 tab 06/09/21 release atorvastatin 10 mg tablet 10 mg PO QAM #30 tab 06/09/21 cyanocobalamin (vitamin B-12) 500 500 mcg PO DAILY #30 tab 06/09/21 mcg tablet - Action: The above medications, specifically ones for stroke treatment/prophylaxis, have been reviewed in detail with the patient and/or patient guest service representative(s) prior to discharge. This includes indication, common adverse reactions, drug interactions, and medication administration. Medication counseling has been employed using the teach-back method to ensure understanding. - Outcome: The patient and/or patient guest service representative(s) have demonstrated understanding of the medications. Thank you for allowing pharmacy to be involved in the care of this patient. Please call [phone] with any additional questions
--- NOTE | 2021-06-24 10:22 | Discharge Summary ---
Date of Service June 09, 2021 Admission HPI Per Admitting Provider This is an 80-year-old female with a history of dementia, hypertension, peripheral vascular disease, and RLE foot wound who presented to [facility] for evaluation of syncope. History is primarily provided by patient's , who is at the bedside along with her son. Around 1845 this evening, patient and her were driving home ( was driving) when she slumped over towards the right door and was "not waking up." After 30 to 45 seconds, she began coming out of it; he brought her to the ER for further evaluation. To clarify, there were no spasms, seizure-like activity, loss of bowel/bladder control, tongue biting during this episode reported by patient or . She denied preceding chest pain or shortness of breath or palpitations. Upon arrival in the ER, patient's got a wheelchair noted that she was having a lot of difficulty controlling her dexterity/limbshe would tell her to move her right arm, and she would move her left arm or complete a different action. He also reported that she was communicating incompletely. While in the process of getting an x-ray, the apprentice technician noted that she had some weakness on the right side. As such, stroke alert was called. The ER physician noted issues with her being able to follow commands with regards to her right side (was unable to follow commands to lift her palm up on the right and other actions involving the right upper extremity). [facility] [place] [place] patient, who said the 2 leading items on the differential with her right-sided neglect type symptoms were CVA versus seizure. Given the focality of her symptoms and the acuity, they proceeded with TNKase. Per the emergency provider, patient does have a known history of dementia that has been worsening over the last several years. She has been unable to drive for the last 4 years. There has been no events where she has stood in the kitchen at the refrigerator troubles closing the door. She has never previously had right upper extremity/right lower extremity issues. No history of seizures. She endorses drinking at most, 1 glass of wine per night. She denies any use of beer or liquor. She denies any tobacco use history. She lives at home with her . 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 Upon arrival in the ED, blood pressure 130/80, heart rate 111, respiratory rate 18. Temp 36. Normal oxygen saturation. CBC revealing of leukocytosis to 16 with left shift, chemistries with BUN 38, creatinine 0.74, TSH 8.27 with normal free T4. COVID-negative. CT head and CTA head without acute processes. CTA of the neck did not reveal any occlusions/aneurysm, though did show asymmetric enhancement of the thyroid. ECG demonstrating normal sinus rhythm at 86 bpm without ectopy, normal CT, QRS. Normal axis, normal transition, good R wave progression. No evidence of hypertrophy. No contiguous pathologic Qs. Nonspecific conduction abnormality seen in the inferior leads. Borderline EKG. She was given TNKase at 2044. Principal Diagnosis Left posterior frontal lobe and left parietal lobeacute ischemic stroke Discharge Exam Constitutional: WD/WN, vitals as above Eyes: PERRL, conjunctivae normal, anicteric sclerae ENMT: external ear and nose normal, oropharynx normal Neck: trachea midline, no thyromegaly Respiratory: normal respiratory effort, lungs clear to auscultation Cardiovascular: RRR, no murmur, no edema Gastrointestinal (Abdomen): normal bowel sounds, soft, nontender, no hepatosplenomegaly Musculoskeletal: no cyanosis or clubbing, extremities motor strength 5/5 Skin: no rashes, warm and dry Neurologic: moves all extremities and awake; no focal motor deficits and not confused Speech / Cognition: normal speech Motor/Sensory: no pronator drift Cranial Nerves: PERRL, normal accommodation, EOM intact bilaterally, normal facial strength (mild chronic drooping of left eyelid), tongue midline, able to rotate head bilaterally, able to elevate shoulders bilaterally, no nystagmus and symmetric palate elevation Coordination: normal [id number] test Psychiatric:L A+Ox3, euthymic affect Discharge Data Allergies Allergy/AdvReac Type Severity Reaction Status Date / Time No Known Allergies Allergy Mild Verified 06/19/21 14:07 Consultations 06/06/21 20:58 ED Decision to Admit Stat 06/06/21 21:50 Consult Casino Cashier Routine 06/06/21 23:06 Consult Neurology Routine Ordered Studies 06/06/21 20:12 CT angio head w con Stat IMPRESSION: Essentially negative CT angiogram of the brain with contrast. CT angio neck with con Stat Impression: 1. Essentially negative CT angiogram of the neck with contrast. 2. Asymmetric enlargement of the right lobe of the thyroid with nodule present. Follow-up thyroid ultrasound on nonemergent basis is recommended. CT head/brain wo con Stat IMPRESSION: 1. No acute intracerebral pathology. 2. Atrophy and remote small vessel disease. 06/07/21 09:00 MR brain wo con Routine IMPRESSION: 1. A few small acute infarcts within the left high convexity. 2. Additional findings as described above. 06/07/21 21:00 CT head/brain wo con Routine IMPRESSION: 1. There are small evolving left frontal and parietal lobe infarcts. 2. There is no evidence of hemorrhagic conversion. 3. There is no mass effect and no new foci of acute ischemia are suspected. Hospital Course (1) Acute CVA (cerebrovascular accident): Whitley Hilliard is an 80 year old female admitted to [facility] from June 06 to June 09, 2021 due to right-sided weakness. She was diagnosed with an acute stroke seen on brain MRI. She received tenecteplase on consultation with [facility]. She had complete resolution of your symptoms the following day. No intracranial hemorrhage was seen on repeat CT head. Therefore you were started on stroke risk reduction medications with aspirin and atorvastatin. She was reviwed by neurology and should follow up in the next 1-2 weeks. Of note there is also concern for short-term memory loss with dementia. Her B12 level was less than 400 therefore recommend starting supplementation for this as prescribed. Her TSH level (8.272) however free T4 was within normal limits and in the setting acute stroke just recommend repeating in 4 to 6 weeks with her PCP to determine if she requires treatment. She should continue to follow up with wound care for her toe ulceration. Given good resolution of her symptoms she did not require inpatient rehabilit ation on discharge but home health have been arranged to help at home. (2) Leukocytosis: (3) Dementia: (4) Peripheral vascular disease: (5) Elevated TSH: (6) Pressure ulcer of right foot, stage 3: (7) Syncope: (8) HTN (hypertension): Total Time Total Time Spent Total Time Spent (In Minutes): 35 Discharge Plan Discharge Items Patient Disposition: Home - Home Health Services Reason For Visit: R-SIDED NEGLECT, ,C/F CVA, RECEIVED TNK, ?SZ Discharge Diagnosis: Acute stroke Activity: Resume your previous activity Non-emergency contact: Primary Care Provider Call non-emergency contact if: you have any medication questions and your symptoms worsen Follow-up/Referrals: Patrick Sousa MD [Physician] - (Neurology PA in 1 to 2 weeks for stroke follow-up) Danya Acosta MD [Primary Care Provider] - Diet: Heart Healthy Addtl Attending Provider Instructions: You were admitted to [facility] from June 06 to June 09, 2021 due to right-sided weakness. You were diagnosed with an acute stroke seen on brain MRI. You received tenecteplase to help with reperfusion following the stroke. You had complete resolution of your symptoms the following day. No intracranial hemorrhage was seen on repeat CT scan of your head. Therefore you were started on stroke risk reduction medications with aspirin (antiplatelet) and atorvastatin (cholesterol lowering medication). Please follow-up with neurology in 1 to 2 weeks (call number above if you have not heard for an appoin tment next week). Of note there is also concern for short-term memory loss with dementia. Your B12 level was less than 400 therefore recommend starting supplementation for this as prescribed. Your TSH level was also elevated suggestive of hypothyroidism which can also increase memory loss however this test does not necessarily accurate during acute stroke and recommend repeating in 4 to 6 weeks with your primary care provider to see if you need treatment for this. Please continue to follow-up with wound care regarding your right toe ulceration. Pending Studies at Discharge: No Stand-Alone Forms: Medications to Prevent Stroke, My [facility], Smoking Cessation Medications and DC Order Prescriptions: New atorvastatin 10 mg Tablet 10 mg PO QAM Qty: 30 RF: 0 aspirin 81 mg Tablet,Delayed Release (Dr/Ec) 81 mg PO QAM Qty: 30 RF: 0 cyanocobalamin (vitamin B-12) 500 mcg tablet 500 mcg PO DAILY Qty: 30 RF: 0 Continued multivitamin Tablet 1 tab PO DAILY RF: 0 amlodipine 2.5 mg tablet 2.5 mg PO DAILY RF: 0 protein Powder 1 ea PO DAILY RF: 0 escitalopram oxalate 10 mg tablet 10 mg PO DAILY RF: 0 Discharge Orders: Discharge Order (Routine); Ordered 06/09/21 Ordered By: Aaron Barcenas Admission Data Admit Date/Time: 06/06/21 21:50 Attending Provider: Aaron Barcenas Admit Provider: Juancho Davis Primary Care Provider: Danya Acosta Other Providers: Corky Ya ; Missael Miles ; Karan Estrada ; Patrick Sousa ; Ana Unger ; Zulay Ewing ; Connie King ; [facility] Other Interventions: Discharge Summary Assessment (RN) Last Done: 06/09/21 15:36 Coding Level of Care Code D/C DAY MANAGEMENT >30 MINS Diagnoses Acute CVA (cerebrovascular accident) I63.9 Leukocytosis D72.829 Leukocytosis type: unspecified Dementia F03.90 Dementia behavioral disturbance: without behavioral disturbance Dementia type: unspecified type Peripheral vascular disease I73.9 Elevated TSH R79.89 Pressure ulcer of right foot, stage 3 L89.893 Syncope R55 Syncope type: unspecified HTN (hypertension) I10 Home Health Attestation I certify that this patient is under my care and that I, or a physicians assistant education director working with me, had a face to-face encounter that meets the home health [id number] encounter requirements with this patient. The encounter with the patient was in whole, or in part, for the following medical condition, which is the primary reason for home health care (list medical condition): CVA I certify that, based on my findings, the following services are medically necessary home health services: My clinical findings support the need for the above services because: Caregiver Instruct Med Mgmt, Safety, Disease Process, Signs to Report OT Assess ADL Status and Restore Function w ADLs PT Gait and Balance Training, Strengthening and Safety Skilled Nsg Assessment Skilled Nsg Instruction New Medications Skilled Nsg Assess Pt Illness, Disease and Sx Monitoring Further, I certify that my clinical findings support that this patient is homebound (i.e. absences from home require considerable and taxing effort and are for medical reasons or hoahaoism services or infrequently or of short duration when for other reasons) because: Transportation Assistance/Unable to Leave Home Unassisted Certification for Home Health Services: Based on the above findings, I certify that this patient is confined to the home and needs intermittent long-term care, physical therapy and/or speech therapy or continues to need occupational therapy. The patient is under my care, and I have initiated the establishment of the plan of care. This patient will be followed by a physician who will periodically review the plan of care.
== END 2021-06-09 16:11 | disposition home health service (06) | DRG 61 ==
LOC: ED 18:56 → 1E 21:50 → SUATTDRO 21:50 → 1E 22:40 → 2W 06-08 14:08